=== PATIENT | female | born 1950 | race Caucasian/White ===

== ENCOUNTER 2017-12-25 11:58 | Emergency (ER) | payer MEDICARE, BC ==
[2017-12-25] MEDS ORDERED: Alum Hydrox/Mag Hydrox/Simeth 30 ML, Lidocaine 2% 15 ML PO ONE ×2 (12:45)
[2017-12-25] MEDS ORDERED: Famotidine 20 MG Tab PO ONE (12:45)
--- NOTE | 2017-12-25 12:54 | EDM.PDOC ---
ED HPI GENERAL MEDICAL PROBLEM - General Chief Complaint: Abdominal Pain Stated Complaint: UPPER ABD PAIN/DISCOMFORT Time Seen by Provider: 12/25/17 12:30 Source of Information: Reports: Patient History Limitations: Reports: No Limitations - History of Present Illness INITIAL COMMENTS - FREE TEXT/NARRATIVE: Patient is a 67-year-old female presents ED complaining of upper abdomen/throat burning sensation. States this has been an on going issue for months. She was evaluated 3 weeks ago with EGD obtained showing inflammation to her stomach. There was no ulcer present. They did biopsies with nothing concerning noted. She continued on Protonix 40 mg every day. States the discomfort worsens with eating and drinking. Symptoms substantially worsens at night with laying down. She's been trying to alter her diet with no significant decrease in symptoms. She has taken antacids which do help but only get worse 15 minutes later. This morning symptoms got so bad that she did vomit. Pain currently is rated 3 out of 10. This morning she was mildly diaphoretic with no documented fever, dizziness, or syncope. There's been no blood within her stool. Nor does she does complain of any dark tarry stools. She was evaluated by her PCP this past with stress test scheduled for tomorrow. She did have EKG obtained at that time which was normal. She was placed on Carafate 4 times a day to which the patient's been taking with little relief. Again symptoms worsen with lying down. There is no relation to increase in symptoms with food she eats. She has some mild shortness of breath described as faint with onset of symptoms. Symptoms subside on its own. There is no first degree relatives with heart disease. She denies any history of heart disease although she does have a history of hypercholesterolemia currently on Crestor and hypertension currently on metoprolol and HCTZ. She does have a history of anxiety and is on Ativan. . throat Pain Score (Numeric/FACES): 1 - Related Data Allergies Allergy/AdvReac Type Severity Reaction Status Date / Time No Known Allergies Allergy Verified 12/25/17 12:19 Home Meds: Home Meds Calcium Polycarbophil [Fibercon] 2 tab PO BID 12/25/17 [History] Fluocinonide 0.5 percent TP ASDIRECTED PRN 12/25/17 [History] LORazepam [Ativan] 0.5 mg PO BID PRN 12/25/17 [History] Lactobacillus Acidophilus [Probiotic] 1 each PO DAILY 12/25/17 [History] Levothyroxine [Synthroid] 50 mcg PO ACBREAKFAST 12/25/17 [History] Metoprolol Succinate/HCTZ [Dutoprol 50-12.5 mg Tablet] 0.5 tab PO DAILY [History] Multivitamin with Minerals [Multiple Vitamin] 1 tab PO DAILY 12/25/17 [History] Pantoprazole Sodium [Protonix] 40 mg PO DAILY 12/25/17 [History] Rosuvastatin [Crestor] 20 mg PO DAILY 12/25/17 [History] Sucralfate [Carafate] 1 gm PO QID 12/25/17 [History] Past Medical History HEENT History: Reports: Impaired Vision Gastrointestinal History: Reports: Gastritis, GERD, Other (See Below) Other Gastrointestinal History: esophagitis Psychiatric History: Reports: Anxiety Endocrine/Metabolic History: Reports: Hypothyroidism Other Dermatologic History: rashes Social & Family History - Family History Family Medical History: Noncontributory - Tobacco Use Smoking Status *Q: Never Smoker - Caffeine Use Caffeine Use: Reports: None - Recreational Drug Use Recreational Drug Use: No ED ROS GENERAL - Review of Systems Review Of Systems: ROS reveals no pertinent complaints other than HPI. ED EXAM, GI/ABD - Physical Exam Exam: See Below Exam Limited By: No Limitations General Appearance: Alert, WD/WN, No Apparent Distress Ears: Hearing Grossly Normal Nose: Normal Inspection Throat/Mouth: Normal Voice, No Airway Compromise Neck: Normal Inspection, Supple Respiratory/Chest: No Respiratory Distress, Lungs Clear, Normal Breath Sounds, No Accessory Muscle Use, Chest Non-Tender Cardiovascular: Normal Peripheral Pulses, Regular Rate, Rhythm, No Murmur GI/Abdominal Exam: Normal Bowel Sounds, Soft, Non-Tender, No Organomegaly, No Distention Back Exam: Normal Inspection Extremities: Normal Inspection, Normal Range of Motion, Non-Tender, No Pedal Edema, Normal Capillary Refill Neurological: Alert, Oriented, CN II-XII Intact, Normal Cognition Psychiatric: Normal Affect, Normal Mood Skin Exam: Warm, Dry, Intact, Normal Color, No Rash Course - Vital Signs Last Recorded V/S: Last Vital Signs Temp 97.5 F 12/25/17 12:10 Pulse 70 12/25/17 12:10 Resp 18 12/25/17 12:10 BP 139/81 12/25/17 12:10 Pulse Ox 96 12/25/17 12:10 - Orders/Labs/Meds Orders: Active Orders 24 hr Category Date Time Status EKG 12 Lead [EKG Documentation Completion] [RC] STAT Care 12/25/17 12:44 Active Peripheral IV Care [RC] . DIRECTED Care 12/25/17 12:46 Active Chest 1V Frontal [CR] Stat Exams 12/25/17 12:44 Taken Labs: Laboratory Tests 12/25/17 12/25/17 12/25/17 Range/Units 12:43 12:43 12:45 WBC 5.89 (3.98-10.04) K/mm3 RBC 4.64 (3.98-5.22) M/mm3 Hgb 13.8 (11.2-15.7) gm/L Hct 40.7 (34.1-44.9) % MCV 87.7 (79.4-94.8) fl MCH 29.7 (25.6-32.2) pg MCHC 33.9 (32.2-35.5) g/dl RDW Std Deviation 39.7 (36.4-46.3) fL Plt Count 184 (182-369) K/mm3 MPV 10.3 (9.4-12.3) fl Neutrophils % (Manual) 63 H (40-60) % Band Neutrophils % 1 (0-10) % Lymphocytes % (Manual) 30 (20-40) % Atypical Lymphs % 0 % Monocytes % (Manual) 6 (2-10) % Eosinophils % (Manual) 0 L (0.7-5.8) % Basophils % (Manual) 0 L (0.1-1.2) Platelet Estimate Adequate RBC Morph Comment Normal Sodium 142 (136-145) mEq/L Potassium 3.4 L (3.5-5.1) mEq/L Chloride 103 (98-107) mEq/L Carbon Dioxide 29 (21-32) mEq/L Anion Gap 13.4 (5-15) BUN 12 (7-18) mg/dL Creatinine 0.8 (0.55-1.02) mg/dL Est Cr Clr Drug Dosing 61.40 mL/min Estimated GFR (MDRD) > 60 (>60) mL/min BUN/Creatinine Ratio 15.0 (14-18) Glucose 92 (80-115) mg/dL Calcium 9.4 (8.5-10.1) mg/dL Total Bilirubin 1.8 H (0.2-1.0) mg/dL AST 21 (15-37) U/L ALT 23 (14-59) U/L Alkaline Phosphatase 69 (46-116) U/L CK-MB (CK-2) 1.4 (0-3.6) ng/ml Troponin I < 0.017 (0.00-0.056) ng/mL C-Reactive Protein 0.3 (<1.0) mg/dL Total Protein 7.5 (6.4-8.2) g/dl Albumin 3.9 (3.4-5.0) g/dl Globulin 3.6 gm/dL Albumin/Globulin Ratio 1.1 (1-2) TSH 3rd Generation 2.585 (0.358-3.74) uIU/mL Meds: Medications Discontinued Medications Generic Name Dose Route Start Last Admin Trade Name Freq PRN Reason Stop Dose Admin Al Hydroxide/Mg Hydroxide 30 0 ml 12/25/17 12:45 12/25/17 13:02 ml/ Lidocaine HCl 15 ml PO 12/25/17 12:46 45 ml ONETIME ONE Administration Famotidine 40 mg 12/25/17 12:45 12/25/17 13:00 Pepcid PO 12/25/17 12:46 40 mg ONETIME ONE Administration - Re-Assessments/Exams Free Text/Narrative Re-Assessment/Exam: Peripheral IV established. Initial labs and studies will include: CBC, chem 14, CRP, troponin, UA, and CK-MB. I also ordered EKG and chest x-ray one view. Ordered Pepcid 40 mg by mouth and GI cocktail by mouth. EKG sinus bradycardia with no acute ST changes noted. Per nursing staff after administration of the GI cocktail almost all of the patient's symptoms are gone. This is suggesting the diagnosis of esophagitis and /or gastritis was correct. Still waiting for results of labs prior to discharge. Chest x ray: revealed no acute processes noted. Final interpretations pending. Labs reviewed: CBC essentially normal. Potassium mildly low at 3.4. Troponin, CK -MB, and TSH were all normal. Discuss results of the labs, chest x-ray, and EKG with the patient. She is ready to be discharged home. She is scheduled for a stress test tomorrow.The patient remained hemodynamically stable while under my care in the E.D. I discussed the concerning symptoms for which to returnto the E.D. with the patient/family. The patient/family verbalized understanding. All questions were answered. Departure - Departure Time of Disposition: 14:05 Disposition: Home, Self-Care 01 Condition: Good Clinical Impression: Esophagitis Gastritis Qualifiers: Gastritis type: unspecified gastritis Chronicity: chronic Gastritis bleeding: without bleeding Qualified Code(s): K29.50 - Unspecified chronic gastritis without bleeding - Discharge Information Instructions: Esophagitis, Gastritis, Adult Referrals: Lisbeth Juan MD [Primary Care Provider] - Forms: ED Department Discharge Additional Instructions: Suspect your systems are related to esophagitis and gastritis. Take all your home medications as prescribed. Will have you take zantac 150 mg PO every evening prior to going to bed. Do not eat or drink within 4 hours of going to bed. Sleeping upright position to reduce any acid reflux symptoms. Refrain from caffeine, carbonated beverages, chocolates, spicy foods, or any other foods that cause aggravation. Keep appointment scheduled tomorrow for stress test. Follow-up with her PCP within the next 3-5 days for reevaluation if symptoms persist. Follow-up with PCP to ensure biopsies obtained did not indicate H. Pylori was present thus requiring further treatment. Continue taking all home medications as prescribed. May utilize maalox throughout the course of the day as needed. Return to the E.D. if you develop any new or worsening symptoms. - My Orders Last 24 Hours: My Active Orders 12/25/17 12:44 EKG 12 Lead [EKG Documentation Completion] [RC] STAT Chest 1V Frontal [CR] Stat 12/25/17 12:46 Peripheral IV Care [RC] . DIRECTED - Assessment/Plan Last 24 Hours: My Active Orders 12/25/17 12:44 EKG 12 Lead [EKG Documentation Completion] [RC] STAT Chest 1V Frontal [CR] Stat 12/25/17 12:46 Peripheral IV Care [RC] . DIRECTED
--- NOTE | 2017-12-27 09:37 | CR ---
Chest: Portable view of the chest was obtained. Comparison: No prior chest x-ray. Heart size is normal. Tortuous thoracic aorta is seen. Lungs are clear without acute parenchymal change. Minimal scoliosis is noted. Impression: 1. Incidental findings. Nothing acute is identified on portable chest x-ray. Diagnostic code #1
== END 2017-12-25 14:30 | disposition home or self-care (01) ==
LOC: JD.ED 11:58
DX: K20.9 Esophagitis, unspecified (principal); K29.50 Unspecified chronic gastritis without bleeding; E03.9 Hypothyroidism, unspecified; I10 Essential (primary) hypertension; F41.9 Anxiety disorder, unspecified; Z79.899 Other long term (current) drug therapy
CPT/HCPCS: 36415; 71045; 80053; 82553; 84443; 84484; 85007; 85027; 86140; 93005; 99284; A9270

== ENCOUNTER 2018-08-28 04:52 | Inpatient (IN) | payer MEDICARE, BC ==
--- NOTE | 2018-08-28 05:10 | EDM.PDOC ---
<Galen Allen - Last Filed: 08/28/18 10:04> ED HPI GENERAL MEDICAL PROBLEM - General Chief Complaint: Abdominal Pain Stated Complaint: abdominal pain Time Seen by Provider: 08/28/18 05:02 - Related Data Allergies Allergy/AdvReac Type Severity Reaction Status Date / Time No Known Allergies Allergy Verified 08/28/18 05:04 Home Meds: Home Meds Calcium Polycarbophil [Fibercon] 2 tab PO BID 12/25/17 [History] LORazepam [Ativan] 0.5 mg PO BID PRN 12/25/17 [History] Levothyroxine [Synthroid] 50 mcg PO ACBREAKFAST 12/25/17 [History] Multivitamin with Minerals [Multiple Vitamin] 1 tab PO DAILY PRN 12/25/17 [ History] Pantoprazole Sodium [Protonix] 40 mg PO BID 12/25/17 [History] Rosuvastatin [Crestor] 20 mg PO BEDTIME 12/25/17 [History] Sucralfate [Carafate] 1 gm PO DAILY 12/25/17 [History] Fluocinonide [Lidex 0.05% Crm] 15 gm TOP DAILY PRN 08/28/18 [History] L.acidoph,Paracasei, B.lactis [Probiotic] 1 each PO DAILY 08/28/18 [History] Metoprolol Succinate [Toprol XL 50mg] 50 mg PO DAILY 08/28/18 [History] Omeprazole 20 mg PO BIDAC 08/28/18 [History] hydroCHLOROthiazide [Hydrochlorothiazide] 12.5 mg PO DAILY 08/28/18 [History] Course - Vital Signs Last Recorded V/S: Last Vital Signs Temp 37.2 C 08/28/18 23:33 Pulse 76 08/28/18 23:33 Resp 18 08/28/18 23:33 BP 125/97 H 08/28/18 23:33 Pulse Ox 94 L 08/28/18 23:33 - Orders/Labs/Meds Orders: Active Orders 24 hr Category Date Time Status CULTURE STOOL + SHIGATOX [RM] Stat Lab 08/28/18 07:30 Ordered OVA & PARASITES BY IMMUNOASSAY [MREF] Stat Lab 08/28/18 07:30 Received Isolation [COMM] Stat Oth 08/28/18 07:30 Ordered Medication Orders Acetaminophen (Tylenol) 650 mg PO Q4H PRN PRN Reason: Pain (Mild 1-3)/fever Last Admin: 08/28/18 17:09 Dose: 650 mg Acetaminophen/Butalbital/Caffeine (Fioricet 325-50-40 Mg) 1 tab PO Q6H PRN PRN Reason: Headache Hydrocodone Bitart/Acetaminophen ([place] 325-5 Mg) 1 tab PO Q4H PRN PRN Reason: Pain (moderate 4-6) Albuterol/Ipratropium (Duoneb 3.0-0.5 Mg/3 Ml) 3 ml NEB Q4H PRN PRN Reason: Shortness Of Breath/wheezing Calcium Polycarbophil (Fibercon) 1,250 mg PO BID PATY Famotidine (Pepcid) 20 mg PO BID PATY Last Admin: 08/28/18 21:03 Dose: 20 mg Hydralazine HCl (Apresoline) 20 mg IVPUSH Q4H PRN PRN Reason: Hypertension Hydrochlorothiazide (Hydrochlorothiazide) 12.5 mg PO DAILY [facility] Hydromorphone HCl (Dilaudid) 0.5 mg IVPUSH Q2H PRN PRN Reason: Pain (severe 7-10) Sodium Chloride (Normal Saline) 1,000 mls @ 100 mls/hr IV ASDIRECTED [facility] Last Admin: 08/28/18 17:15 Dose: 100 mls/hr Promethazine HCl 25 mg/ Sodium (Chloride) 51 mls @ 100 mls/hr IV Q6H PRN PRN Reason: Nausea/Vomiting Last Admin: 08/28/18 22:51 Dose: 100 mls/hr Levothyroxine Sodium (Synthroid) 50 mcg PO ACBREAKFAST [facility] Lorazepam (Ativan) 0.5 mg PO BID PRN PRN Reason: Anxiety Magnesium Sulfate (Pharmacy To Dose - Magnesium Replacement) 0 dose .XX ASDIRECTED PRN PRN Reason: RX TO WATCH MAG Metoprolol Succinate (Toprol Xl) 50 mg PO DAILY [facility] Metoprolol Tartrate (Lopressor) 5 mg IVPUSH Q4H PRN PRN Reason: Tachycardia Multivitamins (Thera) 1 each PO DAILY PRN PRN Reason: VITAMIN Ondansetron HCl (Zofran) 4 mg IV Q6H PRN PRN Reason: Nausea/Vomiting Last Admin: 08/28/18 19:28 Dose: 4 mg Potassium Chloride (Pharmacy To Dose - Potassium Replacement) 0 dose .XX ASDIRECTED PRN PRN Reason: RX TO WATCH K Rosuvastatin Calcium (Crestor) 20 mg PO BEDTIME PATY Saccharomyces Boulardii (Florastor) 250 mg PO TID [facility] Last Admin: 08/28/18 21:03 Dose: 250 mg Admin: 08/28/18 14:58 Dose: 250 mg Scopolamine (Transderm-Scop) 1.5 mg TRDERM Q72H PRN PRN Reason: Nausea/Vomiting Last Admin: 08/28/18 14:57 Dose: 1.5 mg Sucralfate (Carafate) 1 gm PO DAILY [facility] Temazepam (Restoril) 7.5 mg PO BEDTIME PRN PRN Reason: Sleep Vancomycin HCl (Vancomycin 50 Mg/Ml Soln) 250 mg PO QID [facility] Last Admin: 08/28/18 21:04 Dose: 250 mg Admin: 08/28/18 17:08 Dose: 250 mg Admin: 08/28/18 14:54 Dose: 250 mg Labs: Laboratory Tests 08/28/18 08/28/18 08/28/18 Range/Units 05:04 05:04 05:40 WBC 10.30 H (3.98-10.04) K/mm3 RBC 4.62 (3.98-5.22) M/mm3 Hgb 13.8 (11.2-15.7) gm/L Hct 40.3 (34.1-44.9) % MCV 87.2 (79.4-94.8) fl MCH 29.9 (25.6-32.2) pg MCHC 34.2 (32.2-35.5) g/dl RDW Std Deviation 41.9 (36.4-46.3) fL Plt Count 225 (182-369) K/mm3 MPV 11.1 (9.4-12.3) fl Neutrophils % (Manual) 94 H (40-60) % Band Neutrophils % 0 (0-10) % Lymphocytes % (Manual) 4 L (20-40) % Atypical Lymphs % 0 % Monocytes % (Manual) 2 (2-10) % Eosinophils % (Manual) 0 L (0.7-5.8) % Basophils % (Manual) 0 L (0.1-1.2) Platelet Estimate Adequate RBC Morph Comment Normal Sodium 140 (136-145) mEq/L Potassium 3.3 L (3.5-5.1) mEq/L Chloride 103 (98-107) mEq/L Carbon Dioxide 25 (21-32) mEq/L Anion Gap 15.3 H (5-15) BUN 12 (7-18) mg/dL Creatinine 0.7 (0.55-1.02) mg/dL Est Cr Clr Drug Dosing 69.21 mL/min Estimated GFR (MDRD) > 60 (>60) mL/min BUN/Creatinine Ratio 17.1 (14-18) Glucose 113 (80-115) mg/dL Calcium 9.3 (8.5-10.1) mg/dL Total Bilirubin 2.0 H (0.2-1.0) mg/dL AST 22 (15-37) U/L ALT 33 (14-59) U/L Alkaline Phosphatase 65 (46-116) U/L Total Protein 7.4 (6.4-8.2) g/dl Albumin 3.7 (3.4-5.0) g/dl Globulin 3.7 gm/dL Albumin/Globulin Ratio 1.0 (1-2) Lipase 107 (73-393) U/L Urine Color Dark yellow (Yellow) Urine Appearance Clear (Clear) Urine pH 6.0 (5.0-8.0) Ur Specific [place] 1.020 (1.005-1.030) Urine Protein Trace H (Negative) Urine Glucose (UA) Negative (Negative) Urine Ketones Negative (Negative) Urine Occult Blood Negative (Negative) Urine Nitrite Negative (Negative) Urine Bilirubin 1+ H (Negative) Urine Urobilinogen 0.2 (0.2-1.0) Ur Leukocyte Esterase Negative (Negative) Urine RBC Not seen (0-5) /hpf Urine WBC 0-5 (0-5) /hpf Ur Epithelial Cells 0-5 (0-5) /hpf Amorphous Sediment Moderate H (NOT SEEN) /hpf Urine Bacteria Moderate H (FEW) /hpf Urine Mucus Many H (FEW) /hpf C.difficile [id number] C. difficile Tox (PCR) 08/28/18 Range/Units 07:30 WBC (3.98-10.04) K/mm3 RBC (3.98-5.22) M/mm3 Hgb (11.2-15.7) gm/L Hct (34.1-44.9) % MCV (79.4-94.8) fl MCH (25.6-32.2) pg MCHC (32.2-35.5) g/dl RDW Std Deviation (36.4-46.3) fL Plt Count (182-369) K/mm3 MPV (9.4-12.3) fl Neutrophils % (Manual) (40-60) % Band Neutrophils % (0-10) % Lymphocytes % (Manual) (20-40) % Atypical Lymphs % % Monocytes % (Manual) (2-10) % Eosinophils % (Manual) (0.7-5.8) % Basophils % (Manual) (0.1-1.2) Platelet Estimate RBC Morph Comment Sodium (136-145) mEq/L Potassium (3.5-5.1) mEq/L Chloride (98-107) mEq/L Carbon Dioxide (21-32) mEq/L Anion Gap (5-15) BUN (7-18) mg/dL Creatinine (0.55-1.02) mg/dL Est Cr Clr Drug Dosing mL/min Estimated GFR (MDRD) (>60) mL/min BUN/Creatinine Ratio (14-18) Glucose (80-115) mg/dL Calcium (8.5-10.1) mg/dL Total Bilirubin (0.2-1.0) mg/dL AST (15-37) U/L ALT (14-59) U/L Alkaline Phosphatase (46-116) U/L Total Protein (6.4-8.2) g/dl Albumin (3.4-5.0) g/dl Globulin gm/dL Albumin/Globulin Ratio (1-2) Lipase (73-393) U/L Urine Color (Yellow) Urine Appearance (Clear) Urine pH (5.0-8.0) Ur Specific [place] (1.005-1.030) Urine Protein (Negative) Urine Glucose (UA) (Negative) Urine Ketones (Negative) Urine Occult Blood (Negative) Urine Nitrite (Negative) Urine Bilirubin (Negative) Urine Urobilinogen (0.2-1.0) Ur Leukocyte Esterase (Negative) Urine RBC (0-5) /hpf Urine WBC (0-5) /hpf Ur Epithelial Cells (0-5) /hpf Amorphous Sediment (NOT SEEN) /hpf Urine Bacteria (FEW) /hpf Urine Mucus (FEW) /hpf C.difficile [id number] Presumptive negative C. difficile Tox (PCR) Positive H Meds: Medications Generic Name Dose Route Start Last Admin Trade Name Freq PRN Reason Stop Dose Admin Acetaminophen 650 mg 08/28/18 13:49 08/28/18 17:09 Tylenol PO 650 mg Q4H PRN Administration Pain (Mild 1-3)/fever Acetaminophen/Butalbital/Caffeine 1 tab 08/28/18 18:22 Fioricet 325-50-40 Mg PO Q6H PRN Headache Hydrocodone Bitart/Acetaminophen 1 tab 08/28/18 13:49 [place] 325-5 Mg PO Q4H PRN Pain (moderate 4-6) Albuterol/Ipratropium 3 ml 08/28/18 13:49 Duoneb 3.0-0.5 Mg/3 Ml NEB Q4H PRN Shortness Of Breath/wheezing Calcium Polycarbophil 1,250 mg 08/29/18 09:00 Fibercon PO BID PATY Famotidine 20 mg 08/28/18 21:00 08/28/18 21:03 Pepcid PO 20 mg BID PATY Administration Hydralazine HCl 20 mg 08/28/18 13:48 Apresoline IVPUSH Q4H PRN Hypertension Hydrochlorothiazide 12.5 mg 08/29/18 09:00 Hydrochlorothiazide PO DAILY [facility] Hydromorphone HCl 0.5 mg 08/28/18 13:49 Dilaudid IVPUSH Q2H PRN Pain (severe 7-10) Sodium Chloride 1,000 mls @ 100 mls/hr 08/28/18 16:45 08/28/18 17:15 Normal Saline IV 100 mls/hr ASDIRECTED PATY Administration Promethazine HCl 25 mg/ Sodium 51 mls @ 100 mls/hr 08/28/18 21:21 08/28/18 22 :51 Chloride IV 100 mls/hr Q6H PRN Administration Nausea/Vomiting Levothyroxine Sodium 50 mcg 08/29/18 06:00 Synthroid PO ACBREAKFAST PATY Lorazepam 0.5 mg 08/28/18 21:05 Ativan PO BID PRN Anxiety Magnesium Sulfate 0 dose 08/28/18 14:00 Pharmacy To Dose - Magnesium Replacement .XX ASDIRECTED PRN RX TO WATCH MAG Metoprolol Succinate 50 mg 08/29/18 09:00 Toprol Xl PO DAILY PAT[facility] Metoprolol Tartrate 5 mg 08/28/18 13:48 Lopressor IVPUSH Q4H PRN Tachycardia Multivitamins 1 each 08/28/18 21:30 Thera PO DAILY PRN VITAMIN Ondansetron HCl 4 mg 08/28/18 13:49 08/28/18 19:28 Zofran IV 4 mg Q6H PRN Administration Nausea/Vomiting Potassium Chloride 0 dose 08/28/18 14:00 Pharmacy To Dose - Potassium Replacement .XX ASDIRECTED PRN RX TO WATCH K Rosuvastatin Calcium 20 mg 08/29/18 21:00 Crestor PO BEDTIME PATY Saccharomyces Boulardii 250 mg 08/28/18 15:00 08/28/18 21:03 Florastor PO 250 mg TID PATY Administration Scopolamine 1.5 mg 08/28/18 13:02 08/28/18 14:57 Transderm-Scop TRDERM 1.5 mg Q72H PRN Administration Nausea/Vomiting Sucralfate 1 gm 08/29/18 09:00 Carafate PO DAILY [facility] Temazepam 7.5 mg 08/28/18 13:49 Restoril PO BEDTIME PRN Sleep Vancomycin HCl 250 mg 08/28/18 14:00 08/28/18 21:04 Vancomycin 50 Mg/Ml Soln PO 250 mg QID PATY Administration Discontinued Medications Generic Name Dose Route Start Last Admin Trade Name Freq PRN Reason Stop Dose Admin Diatrizoate Meglum/Diatrizoate Sod 90 ml 08/28/18 06:40 08/28/18 07:16 Gastrografin 37% PO 08/28/18 06:41 90 ml ONETIME ONE Administration Hydromorphone HCl 0.5 mg 08/28/18 05:32 08/28/18 05:45 Dilaudid IVPUSH 08/28/18 05:33 0.5 mg ONETIME STA Administration Hydromorphone HCl 0.5 mg 08/28/18 08:51 08/28/18 09:00 Dilaudid IVPUSH 08/28/18 08:52 0.5 mg ONETIME ONE Administration Hydromorphone HCl 0.5 mg 08/28/18 13:00 08/28/18 13:07 Dilaudid IVPUSH 08/28/18 13:01 0.5 mg ONETIME ONE Administration Sodium Chloride 1,000 mls @ 100 mls/hr 08/28/18 05:45 08/28/18 05:43 Normal Saline IV 100 mls/hr ASDIRECTED PATY Administration Sodium Chloride 1,000 mls @ 150 mls/hr 08/28/18 10:00 08/28/18 09:55 Normal Saline IV 150 mls/hr ASDIRECTED PATY Administration Iopamidol 100 ml 08/28/18 06:40 08/28/18 07:16 Isovue-370 (76%) IV 08/28/18 06:41 100 ml ONETIME ONE Administration Metoclopramide HCl 5 mg 08/28/18 21:17 Reglan IVPUSH Q6H PRN Nausea Non-Formulary Medication 15 gm 08/28/18 17:18 Fluocinonide TOP DAILY PRN Rash Ondansetron HCl 4 mg 08/28/18 05:32 08/28/18 05:44 Zofran IVPUSH 08/28/18 05:33 4 mg ONETIME ONE Administration Ondansetron HCl 4 mg 08/28/18 08:52 08/28/18 09:00 Zofran IVPUSH 08/28/18 08:53 4 mg ONETIME ONE Administration Ondansetron HCl 4 mg 08/28/18 13:01 08/28/18 13:07 Zofran IVPUSH 4 mg Q6H PRN Administration Nausea/Vomiting Potassium Chloride 40 meq 08/28/18 14:30 08/28/18 18:58 Klor-Con M20 PO 08/28/18 18:31 40 meq Q4H PATY Administration Saccharomyces Boulardii 250 mg 08/29/18 09:00 Florastor PO DAILY [facility] Vancomycin HCl 125 mg 08/28/18 09:51 08/28/18 09:59 Vancomycin 50 Mg/Ml Soln PO 08/28/18 09:52 125 mg ONETIME ONE Administration - Re-Assessments/Exams Free Text/Narrative Re-Assessment/Exam: 08/28/18 10:[address] Ordonez. Her CT shows mild areas of wall edema throughout the colon suggesting mild diffuse and nonspecific colitis. She was able to give us a stool sample and there was some WBCs and her C-dif was positive. I ordered more IV fluids and vancomycin 125mg by mouth. I do not feel she is going to do well at home. I called Dr Mosher and he agreed to the admission. Departure - Departure Time of Disposition: 10:10 Disposition: Admitted As Inpatient 66 Condition: Fair Clinical Impression: Clostridium difficile colitis Abdominal pain Qualifiers: Abdominal location: generalized Qualified Code(s): R10.84 - Generalized abdominal pain Diarrhea Qualifiers: Diarrhea type: infectious Qualified Code(s): A09 - Infectious gastroenteritis and colitis, unspecified - Discharge Information <MeryDevon Britni - Last Filed: 08/29/18 01:59> ED HPI GENERAL MEDICAL PROBLEM - General Source of Information: Reports: Patient, Family (), RN Notes Reviewed History Limitations: Reports: No Limitations - History of Present Illness INITIAL COMMENTS - FREE TEXT/NARRATIVE: The patient states that she has been experiencing lower abdominal cramps, worse on the left than the right, watery diarrhea, and nausea without emesis for the past 2 days. She states that she had a temperature 101 last night, but was afebrile today. No urinary symptoms. She states that she took 2 Advil tablets. The patient states that she had similar symptoms while in [place] earlier this month. She was seen at the [facility] in [place] on 08/09/2017 with a complaint of nausea with vomiting, watery diarrhea, abdominal cramps, chest pain, and fatigue. Workup included a CBC, CMP, lipase level, 2 troponins, a TSH level, a urinalysis, and ECG, and a CT scan of her abdomen and pelvis. Her blood work, urinalysis, and ECG were largely unremarkable, however, her CT scan found mild proctitis. She was prescribed a 10-day course of ciprofloxacin and Flagyl, which she completed. She states that her symptoms largely resolved, although the antibiotics caused her to have nausea, therefore she did not eat much, and therefore she has not had much in the way of bowel movements. The patient denies having chronic diarrhea. She does have a history of a large hiatal hernia with GERD and gastritis. She states that she takes Prilosec daily , as prescribed. The patient's PCP is Dr. Lisbeth Juan. Abdominal Pain Score (Numeric/FACES): 8 Past Medical History HEENT History: Reports: Impaired Vision Cardiovascular History: Reports: High Cholesterol, Hypertension Gastrointestinal History: Reports: Colon Polyp, Diverticulosis (diverticulitis) , Gastritis, GERD, Hiatal Hernia (large) Psychiatric History: Reports: Anxiety Endocrine/Metabolic History: Reports: Hypothyroidism - Past Surgical History HEENT Surgical History: Reports: Oral Surgery (wisdom teeth extraction) GI Surgical History: Reports: Cholecystectomy (around 1999), Colonoscopy (x 1), EGD (x 1) Female Surgical History: Reports: D&C (x 2), Hysterectomy (complete), Salpingo-Oophorectomy, Tubal Ligation Social & Family History - Family History Family Medical History: Noncontributory - Tobacco Use Smoking Status *Q: Never Smoker - Caffeine Use Caffeine Use: Reports: None - Alcohol Use Alcohol Use History: Yes Alcohol Use Frequency: Socially - Recreational Drug Use Recreational Drug Use: No - Living Situation & Occupation Living situation: Reports: , with Spouse Occupation: Retired ED ROS GENERAL - Review of Systems Review Of Systems: ROS reveals no pertinent complaints other than HPI. ED EXAM, GI/ABD - Physical Exam Exam: See Below Exam Limited By: No Limitations General Appearance: Alert, WD/WN, No Apparent Distress Eyes: Bilateral: Normal Appearance, EOMI Ears: Normal External Exam, Hearing Grossly Normal Nose: Normal Inspection Throat/Mouth: Normal Inspection, Normal Lips, Normal Voice, No Airway Compromise Head: Atraumatic, Normocephalic Neck: Normal Inspection, Full Range of Motion Respiratory/Chest: No Respiratory Distress, Lungs Clear, Normal Breath Sounds, No Accessory Muscle Use Cardiovascular: Normal Peripheral Pulses, Regular Rate, Rhythm, No Edema, No Gallop, No JVD, No Murmur, No Rub GI/Abdominal Exam: Normal Bowel Sounds, Soft, No Organomegaly, No Distention, No Abnormal Bruit, No Mass, Tender (Generalized, but greater in the lower abdomen than the upper. Not especially more tender in the left lower quadrant of the right lower quadrant.) (Female) Exam: Deferred Rectal (Female) Exam: Deferred Back Exam: Normal Inspection, Full Range of Motion. No: CVA Tenderness (L), CVA Tenderness (R) Extremities: Normal Inspection, Normal Range of Motion, No Pedal Edema, Normal Capillary Refill Neurological: Alert, Oriented, Normal Cognition, No Motor/Sensory Deficits Psychiatric: Normal Affect Skin Exam: Warm, Dry, Intact, Normal Color, No Rash Course - Orders/Labs/Meds Orders: Active Orders 24 hr Category Date Time Status CULTURE STOOL + SHIGATOX [RM] Stat Lab 08/28/18 07:30 Ordered OVA & PARASITES BY IMMUNOASSAY [MREF] Stat Lab 08/28/18 07:30 Received Isolation [COMM] Stat Oth 08/28/18 07:30 Ordered Medication Orders Acetaminophen (Tylenol) 650 mg PO Q4H PRN PRN Reason: Pain (Mild 1-3)/fever Last Admin: 08/28/18 17:09 Dose: 650 mg Acetaminophen/Butalbital/Caffeine (Fioricet 325-50-40 Mg) 1 tab PO Q6H PRN PRN Reason: Headache Hydrocodone Bitart/Acetaminophen ([place] 325-5 Mg) 1 tab PO Q4H PRN PRN Reason: Pain (moderate 4-6) Albuterol/Ipratropium (Duoneb 3.0-0.5 Mg/3 Ml) 3 ml NEB Q4H PRN PRN Reason: Shortness Of Breath/wheezing Calcium Polycarbophil (Fibercon) 1,250 mg PO BID [facility] Famotidine (Pepcid) 20 mg PO BID [facility] Last Admin: 08/28/18 21:03 Dose: 20 mg Hydralazine HCl (Apresoline) 20 mg IVPUSH Q4H PRN PRN Reason: Hypertension Hydrochlorothiazide (Hydrochlorothiazide) 12.5 mg PO DAILY [facility] Hydromorphone HCl (Dilaudid) 0.5 mg IVPUSH Q2H PRN PRN Reason: Pain (severe 7-10) Sodium Chloride (Normal Saline) 1,000 mls @ 100 mls/hr IV ASDIRECTED [facility] Last Admin: 08/28/18 17:15 Dose: 100 mls/hr Promethazine HCl 25 mg/ Sodium (Chloride) 51 mls @ 100 mls/hr IV Q6H PRN PRN Reason: Nausea/Vomiting Last Admin: 08/28/18 22:51 Dose: 100 mls/hr Levothyroxine Sodium (Synthroid) 50 mcg PO ACBREAKFAST [facility] Lorazepam (Ativan) 0.5 mg PO BID PRN PRN Reason: Anxiety Magnesium Sulfate (Pharmacy To Dose - Magnesium Replacement) 0 dose .XX ASDIRECTED PRN PRN Reason: RX TO WATCH MAG Metoprolol Succinate (Toprol Xl) 50 mg PO DAILY [facility] Metoprolol Tartrate (Lopressor) 5 mg IVPUSH Q4H PRN PRN Reason: Tachycardia Multivitamins (Thera) 1 each PO DAILY PRN PRN Reason: VITAMIN Ondansetron HCl (Zofran) 4 mg IV Q6H PRN PRN Reason: Nausea/Vomiting Last Admin: 08/28/18 19:28 Dose: 4 mg Potassium Chloride (Pharmacy To Dose - Potassium Replacement) 0 dose .XX ASDIRECTED PRN PRN Reason: RX TO WATCH K Rosuvastatin Calcium (Crestor) 20 mg PO BEDTIME PATY Saccharomyces Boulardii (Florastor) 250 mg PO TID PATY Last Admin: 08/28/18 21:03 Dose: 250 mg Admin: 08/28/18 14:58 Dose: 250 mg Scopolamine (Transderm-Scop) 1.5 mg TRDERM Q72H PRN PRN Reason: Nausea/Vomiting Last Admin: 08/28/18 14:57 Dose: 1.5 mg Sucralfate (Carafate) 1 gm PO DAILY [facility] Temazepam (Restoril) 7.5 mg PO BEDTIME PRN PRN Reason: Sleep Vancomycin HCl (Vancomycin 50 Mg/Ml Soln) 250 mg PO QID [facility] Last Admin: 08/28/18 21:04 Dose: 250 mg Admin: 08/28/18 17:08 Dose: 250 mg Admin: 08/28/18 14:54 Dose: 250 mg Labs: Laboratory Tests 08/28/18 08/28/18 08/28/18 Range/Units 05:04 05:04 05:40 WBC 10.30 H (3.98-10.04) K/mm3 RBC 4.62 (3.98-5.22) M/mm3 Hgb 13.8 (11.2-15.7) gm/L Hct 40.3 (34.1-44.9) % MCV 87.2 (79.4-94.8) fl MCH 29.9 (25.6-32.2) pg MCHC 34.2 (32.2-35.5) g/dl RDW Std Deviation 41.9 (36.4-46.3) fL Plt Count 225 (182-369) K/mm3 MPV 11.1 (9.4-12.3) fl Neutrophils % (Manual) 94 H (40-60) % Band Neutrophils % 0 (0-10) % Lymphocytes % (Manual) 4 L (20-40) % Atypical Lymphs % 0 % Monocytes % (Manual) 2 (2-10) % Eosinophils % (Manual) 0 L (0.7-5.8) % Basophils % (Manual) 0 L (0.1-1.2) Platelet Estimate Adequate RBC Morph Comment Normal Sodium 140 (136-145) mEq/L Potassium 3.3 L (3.5-5.1) mEq/L Chloride 103 (98-107) mEq/L Carbon Dioxide 25 (21-32) mEq/L Anion Gap 15.3 H (5-15) BUN 12 (7-18) mg/dL Creatinine 0.7 (0.55-1.02) mg/dL Est Cr Clr Drug Dosing 69.21 mL/min Estimated GFR (MDRD) > 60 (>60) mL/min BUN/Creatinine Ratio 17.1 (14-18) Glucose 113 (80-115) mg/dL Calcium 9.3 (8.5-10.1) mg/dL Total Bilirubin 2.0 H (0.2-1.0) mg/dL AST 22 (15-37) U/L ALT 33 (14-59) U/L Alkaline Phosphatase 65 (46-116) U/L Total Protein 7.4 (6.4-8.2) g/dl Albumin 3.7 (3.4-5.0) g/dl Globulin 3.7 gm/dL Albumin/Globulin Ratio 1.0 (1-2) Lipase 107 (73-393) U/L Urine Color Dark yellow (Yellow) Urine Appearance Clear (Clear) Urine pH 6.0 (5.0-8.0) Ur Specific [place] 1.020 (1.005-1.030) Urine Protein Trace H (Negative) Urine Glucose (UA) Negative (Negative) Urine Ketones Negative (Negative) Urine Occult Blood Negative (Negative) Urine Nitrite Negative (Negative) Urine Bilirubin 1+ H (Negative) Urine Urobilinogen 0.2 (0.2-1.0) Ur Leukocyte Esterase Negative (Negative) Urine RBC Not seen (0-5) /hpf Urine WBC 0-5 (0-5) /hpf Ur Epithelial Cells 0-5 (0-5) /hpf Amorphous Sediment Moderate H (NOT SEEN) /hpf Urine Bacteria Moderate H (FEW) /hpf Urine Mucus Many H (FEW) /hpf C.difficile 027-NAP1-B1 C. difficile Tox (PCR) 08/28/18 Range/Units 07:30 WBC (3.98-10.04) K/mm3 RBC (3.98-5.22) M/mm3 Hgb (11.2-15.7) gm/L Hct (34.1-44.9) % MCV (79.4-94.8) fl MCH (25.6-32.2) pg MCHC (32.2-35.5) g/dl RDW Std Deviation (36.4-46.3) fL Plt Count (182-369) K/mm3 MPV (9.4-12.3) fl Neutrophils % (Manual) (40-60) % Band Neutrophils % (0-10) % Lymphocytes % (Manual) (20-40) % Atypical Lymphs % % Monocytes % (Manual) (2-10) % Eosinophils % (Manual) (0.7-5.8) % Basophils % (Manual) (0.1-1.2) Platelet Estimate RBC Morph Comment Sodium (136-145) mEq/L Potassium (3.5-5.1) mEq/L Chloride (98-107) mEq/L Carbon Dioxide (21-32) mEq/L Anion Gap (5-15) BUN (7-18) mg/dL Creatinine (0.55-1.02) mg/dL Est Cr Clr Drug Dosing mL/min Estimated GFR (MDRD) (>60) mL/min BUN/Creatinine Ratio (14-18) Glucose (80-115) mg/dL Calcium (8.5-10.1) mg/dL Total Bilirubin (0.2-1.0) mg/dL AST (15-37) U/L ALT (14-59) U/L Alkaline Phosphatase (46-116) U/L Total Protein (6.4-8.2) g/dl Albumin (3.4-5.0) g/dl Globulin gm/dL Albumin/Globulin Ratio (1-2) Lipase (73-393) U/L Urine Color (Yellow) Urine Appearance (Clear) Urine pH (5.0-8.0) Ur Specific [place] (1.005-1.030) Urine Protein (Negative) Urine Glucose (UA) (Negative) Urine Ketones (Negative) Urine Occult Blood (Negative) Urine Nitrite (Negative) Urine Bilirubin (Negative) Urine Urobilinogen (0.2-1.0) Ur Leukocyte Esterase (Negative) Urine RBC (0-5) /hpf Urine WBC (0-5) /hpf Ur Epithelial Cells (0-5) /hpf Amorphous Sediment (NOT SEEN) /hpf Urine Bacteria (FEW) /hpf Urine Mucus (FEW) /hpf C.difficile [id number] Presumptive negative C. difficile Tox (PCR) Positive H Meds: Medications Generic Name Dose Route Start Last Admin Trade Name Freq PRN Reason Stop Dose Admin Acetaminophen 650 mg 08/28/18 13:49 08/28/18 17:09 Tylenol PO 650 mg Q4H PRN Administration Pain (Mild 1-3)/fever Acetaminophen/Butalbital/Caffeine 1 tab 08/28/18 18:22 Fioricet 325-50-40 Mg PO Q6H PRN Headache Hydrocodone Bitart/Acetaminophen 1 tab 08/28/18 13:49 [place] 325-5 Mg PO Q4H PRN Pain (moderate 4-6) Albuterol/Ipratropium 3 ml 08/28/18 13:49 Duoneb 3.0-0.5 Mg/3 Ml NEB Q4H PRN Shortness Of Breath/wheezing Calcium Polycarbophil 1,250 mg 08/29/18 09:00 Fibercon PO BID PATY Famotidine 20 mg 08/28/18 21:00 08/28/18 21:03 Pepcid PO 20 mg BID PATY Administration Hydralazine HCl 20 mg 08/28/18 13:48 Apresoline IVPUSH Q4H PRN Hypertension Hydrochlorothiazide 12.5 mg 08/29/18 09:00 Hydrochlorothiazide PO DAILY PATY Hydromorphone HCl 0.5 mg 08/28/18 13:49 Dilaudid IVPUSH Q2H PRN Pain (severe 7-10) Sodium Chloride 1,000 mls @ 100 mls/hr 08/28/18 16:45 08/28/18 17:15 Normal Saline IV 100 mls/hr ASDIRECTED PATY Administration Promethazine HCl 25 mg/ Sodium 51 mls @ 100 mls/hr 08/28/18 21:21 08/28/18 22 :51 Chloride IV 100 mls/hr Q6H PRN Administration Nausea/Vomiting Levothyroxine Sodium 50 mcg 08/29/18 06:00 Synthroid PO ACBREAKFAST PATY Lorazepam 0.5 mg 08/28/18 21:05 Ativan PO BID PRN Anxiety Magnesium Sulfate 0 dose 08/28/18 14:00 Pharmacy To Dose - Magnesium Replacement .XX ASDIRECTED PRN RX TO WATCH MAG Metoprolol Succinate 50 mg 08/29/18 09:00 Toprol Xl PO DAILY PATY Metoprolol Tartrate 5 mg 08/28/18 13:48 Lopressor IVPUSH Q4H PRN Tachycardia Multivitamins 1 each 08/28/18 21:30 Thera PO DAILY PRN VITAMIN Ondansetron HCl 4 mg 08/28/18 13:49 08/28/18 19:28 Zofran IV 4 mg Q6H PRN Administration Nausea/Vomiting Potassium Chloride 0 dose 08/28/18 14:00 Pharmacy To Dose - Potassium Replacement .XX ASDIRECTED PRN RX TO WATCH K Rosuvastatin Calcium 20 mg 08/29/18 21:00 Crestor PO BEDTIME PATY Saccharomyces Boulardii 250 mg 08/28/18 15:00 08/28/18 21:03 Florastor PO 250 mg TID PATY Administration Scopolamine 1.5 mg 08/28/18 13:02 08/28/18 14:57 Transderm-Scop TRDERM 1.5 mg Q72H PRN Administration Nausea/Vomiting Sucralfate 1 gm 08/29/18 09:00 Carafate PO DAILY [facility] Temazepam 7.5 mg 08/28/18 13:49 Restoril PO BEDTIME PRN Sleep Vancomycin HCl 250 mg 08/28/18 14:00 08/28/18 21:04 Vancomycin 50 Mg/Ml Soln PO 250 mg QID PATY Administration Discontinued Medications Generic Name Dose Route Start Last Admin Trade Name Freq PRN Reason Stop Dose Admin Diatrizoate Meglum/Diatrizoate Sod 90 ml 08/28/18 06:40 08/28/18 07:16 Gastrografin 37% PO 08/28/18 06:41 90 ml ONETIME ONE Administration Hydromorphone HCl 0.5 mg 08/28/18 05:32 08/28/18 05:45 Dilaudid IVPUSH 08/28/18 05:33 0.5 mg ONETIME STA Administration Hydromorphone HCl 0.5 mg 08/28/18 08:51 08/28/18 09:00 Dilaudid IVPUSH 08/28/18 08:52 0.5 mg ONETIME ONE Administration Hydromorphone HCl 0.5 mg 08/28/18 13:00 08/28/18 13:07 Dilaudid IVPUSH 08/28/18 13:01 0.5 mg ONETIME ONE Administration Sodium Chloride 1,000 mls @ 100 mls/hr 08/28/18 05:45 08/28/18 05:43 Normal Saline IV 100 mls/hr ASDIRECTED PATY Administration Sodium Chloride 1,000 mls @ 150 mls/hr 08/28/18 10:00 08/28/18 09:55 Normal Saline IV 150 mls/hr ASDIRECTED PATY Administration Iopamidol 100 ml 08/28/18 06:40 08/28/18 07:16 Isovue-370 (76%) IV 08/28/18 06:41 100 ml ONETIME ONE Administration Metoclopramide HCl 5 mg 08/28/18 21:17 Reglan IVPUSH Q6H PRN Nausea Non-Formulary Medication 15 gm 08/28/18 17:18 Fluocinonide TOP DAILY PRN Rash Ondansetron HCl 4 mg 08/28/18 05:32 08/28/18 05:44 Zofran IVPUSH 08/28/18 05:33 4 mg ONETIME ONE Administration Ondansetron HCl 4 mg 08/28/18 08:52 08/28/18 09:00 Zofran IVPUSH 08/28/18 08:53 4 mg ONETIME ONE Administration Ondansetron HCl 4 mg 08/28/18 13:01 08/28/18 13:07 Zofran IVPUSH 4 mg Q6H PRN Administration Nausea/Vomiting Potassium Chloride 40 meq 08/28/18 14:30 08/28/18 18:58 Klor-Con M20 PO 08/28/18 18:31 40 meq Q4H PATY Administration Saccharomyces Boulardii 250 mg 08/29/18 09:00 Florastor PO DAILY PATY Vancomycin HCl 125 mg 08/28/18 09:51 08/28/18 09:59 Vancomycin 50 Mg/Ml Soln PO 08/28/18 09:52 125 mg ONETIME ONE Administration - Re-Assessments/Exams Free Text/Narrative Re-Assessment/Exam: 08/28/18 05:34 The patient has both lower abdominal cramps and generalized abdominal tenderness , but more tender in the lower abdomen than the upper. I have ordered blood work , a urinalysis, and a CT scan of the abdomen and pelvis with oral and IV contrast. If the patient can provide a stool sample, I will run some studies, including a C. difficile by PCR. In the meantime, the patient will receive some Dilaudid, Zofran, and IV fluid. 08/28/18 07:[address] Allen, and care of the patient turned over to him at this time, for change of shift.
[2018-08-28] MEDS ORDERED: Ondansetron 4 MG/2 ML SDV IVPUSH ONE ×2 (05:32→08:52)
[2018-08-28] MEDS ORDERED: HYDROmorphone 1 MG/ML Syringe IVPUSH STA (05:32)
[2018-08-28] MEDS ORDERED: Sodium Chloride 0.9% 1,000 ML IV SCH ×2 (05:45→10:00)
[2018-08-28] MEDS ORDERED: Diatrizoate Meglumine/Diatrizoate Sodium 37% 120 ML Bottle PO ONE (06:40)
[2018-08-28] MEDS ORDERED: Iopamidol 755 Mg/ML 200 ML Bottle IV ONE (06:40)
--- NOTE | 2018-08-28 07:42 | CT ---
CT abdomen and pelvis Technique: Multiple axial sections were obtained from above the dome of the diaphragm inferiorly through the pubic symphysis. Intravenous contrast and oral contrast has been given. Delayed images were also obtained from above the dome of the diaphragm inferiorly through the pubic symphysis. Comparison: No prior abdominal imaging is available. Findings: Diverticuli are seen within the sigmoid colon and lesser diverticuli within other portions of the colon. Mild areas of wall edema are noted within the colon suggesting mild diffuse colitis. Visualized lung bases are clear. Liver shows no focal parenchymal abnormality. Large hiatal hernia is seen. Spleen appears normal. Pancreas is within normal limits. Surgical clips seen from prior cholecystectomy. Common bile duct mildly prominent likely residual from prior cholecystectomy. Kidneys show symmetric contrast enhancement without hydronephrosis or mass. Aorta shows no aneurysm. No retroperitoneal adenopathy is seen. Appendix is seen and is normal in size. No pelvic mass or adenopathy is seen. Delayed images show contrast within the ureters and bladder. Bone window settings were reviewed which show severe disc space narrowing at L5-S1 with vacuum phenomena. Mild scattered endplate osteophytes are seen. Degenerative apophyseal change is noted within the lower lumbar spine. Impression: 1. Mild areas of wall edema throughout the colon suggesting mild diffuse and nonspecific colitis. 2. Other incidental findings as noted above. Diagnostic code #3
[2018-08-28] MEDS ORDERED: HYDROmorphone 0.5 MG/0.5 ML Syringe IVPUSH ONE ×2 (08:51→13:00)
[2018-08-28] MEDS ORDERED: Vancomycin 50 MG/ML Oral Solution Bottle Kit PO ONE (09:51)
[2018-08-28] MEDS ORDERED: Ondansetron 4 MG/2 ML SDV IVPUSH PRN (13:01)
[2018-08-28] MEDS ORDERED: Scopolamine 1.5 MG Transdermal Patch TRDERM PRN (13:02)
[2018-08-28] MEDS ORDERED: hydrALAZINE 20 MG/ML SDV IVPUSH PRN (13:48)
[2018-08-28] MEDS ORDERED: Metoprolol Tartrate 5 MG/5 ML SDV IVPUSH PRN (13:48)
[2018-08-28] MEDS ORDERED: Albuterol/Ipratropium 3.0-0.5 MG/3 ML Neb Soln NEB PRN (13:49)
[2018-08-28] MEDS ORDERED: Acetaminophen/HYDROcodone 325-5 MG Tab PO PRN (13:49)
[2018-08-28] MEDS ORDERED: HYDROmorphone 0.5 MG/0.5 ML Syringe IVPUSH PRN (13:49)
[2018-08-28] MEDS ORDERED: Acetaminophen 325 MG Tab PO PRN (13:49)
[2018-08-28] MEDS ORDERED: Temazepam 7.5 MG Cap PO PRN (13:49)
--- NOTE | 2018-08-28 13:53 | PCM.HP ---
H&P History of Present Illness - General Date of Service: 08/28/18 Admit Problem/Dx: Admission Diagnosis/Problem Admission Diagnosis/Problem Clostridium difficile diarrhea Source of Information: Patient, Provider, RN Notes Reviewed History Limitations: Reports: No Limitations - History of Present Illness Initial Comments - Free Text/Narative: This is a 68 yo elderly white female with past medical hx/o Impaired Vision, HTN , HLD, GERD/Hiatal Hernia, Hx/o Diverticulosis with Diverticulitis, Hypothyroidism, and Anxiety who comes in for evaluation of 2 day hx/o lower abdominal pain, L>R, associated with watery diarrhea, nausea and a temperature of 100.1 degrees. Her fever resolves after taking 2 tablets of Advil last night. She states that she had a similar episode earlier this month while she was in [place] and was diagnosed with proctitis at [facility]. She was prescribed and treated with a 10-day course of Cipro and Flagyl, which she completed w/o any issues. She states, her symptoms did resolve. Her initial work up in ED shows a CBC remarkable for WBC of 10.30, Neutrophils of 94%, and Lymphocytes of 4%. Her Chemistry is significant for K of 3.3, AG of 15.3, and Total Bilirubin of 2. Her UA is not suggestive of UTI. She is positive for C. difficile screening. Abdominal/Pelvis CT scan report reads mild areas of wall edema throughout the colon suggesting mild diffuse and non- specific colitis. Patient is being admitted to treatment of C. difficile Colitis. She is full code. Abdominal Pain Score (Numeric/FACES): 8 - Related Data Allergies/Adverse Reactions: Allergies Allergy/AdvReac Type Severity Reaction Status Date / Time No Known Allergies Allergy Verified 08/28/18 05:04 Home Medications: Home Meds Calcium Polycarbophil [Fibercon] 2 tab PO BID 12/25/17 [History] LORazepam [Ativan] 0.5 mg PO BID PRN 12/25/17 [History] Levothyroxine [Synthroid] 50 mcg PO ACBREAKFAST 12/25/17 [History] Multivitamin with Minerals [Multiple Vitamin] 1 tab PO DAILY PRN 12/25/17 [ History] Pantoprazole Sodium [Protonix] 40 mg PO BID 12/25/17 [History] Rosuvastatin [Crestor] 20 mg PO BEDTIME 12/25/17 [History] Sucralfate [Carafate] 1 gm PO DAILY 12/25/17 [History] Fluocinonide [Lidex 0.05% Crm] 15 gm TOP DAILY PRN 08/28/18 [History] L.acidoph,Paracasei, B.lactis [Probiotic] 1 each PO DAILY 08/28/18 [History] Metoprolol Succinate [Toprol XL 50mg] 50 mg PO DAILY 08/28/18 [History] Omeprazole 20 mg PO BIDAC 08/28/18 [History] hydroCHLOROthiazide [Hydrochlorothiazide] 12.5 mg PO DAILY 08/28/18 [History] Past Medical History HEENT History: Reports: Impaired Vision Cardiovascular History: Reports: High Cholesterol, Hypertension Gastrointestinal History: Reports: Colon Polyp, Diverticulosis (diverticulitis) , Gastritis, GERD, Hiatal Hernia (large) Other Gastrointestinal History: esophagitis Psychiatric History: Reports: Anxiety Endocrine/Metabolic History: Reports: Hypothyroidism Other Dermatologic History: rashes - Past Surgical History HEENT Surgical History: Reports: Oral Surgery (wisdom teeth extraction) GI Surgical History: Reports: Cholecystectomy (around 1999), Colonoscopy (x 1), EGD (x 1) Female Surgical History: Reports: D&C (x 2), Hysterectomy (complete), Salpingo-Oophorectomy, Tubal Ligation Social & Family History - Family History Family Medical History: Noncontributory - Tobacco Use Smoking Status *Q: Never Smoker - Caffeine Use Caffeine Use: Reports: None - Recreational Drug Use Recreational Drug Use: No - Living Situation & Occupation Living situation: Reports: , with Spouse Occupation: Retired H&P Review of Systems - Review of Systems: Review Of Systems: See Below General: Reports: Fever, Decreased Appetite. Denies: Chills, Malaise, Fatigue HEENT: Reports: No Symptoms Pulmonary: Denies: Shortness of Breath Cardiovascular: Denies: Chest Pain, Dyspnea on Exertion, Edema, Lightheadedness , Syncope, Claudication, Blood Pressure Problem Gastrointestinal: Reports: Abdominal Pain, Diarrhea, Decreased Appetite, Nausea. Denies: Bloody Stool, Hematemesis, Melena, Vomiting Genitourinary: Reports: No Symptoms Musculoskeletal: Reports: No Symptoms Skin: Denies: Cyanosis, Jaundice, Pallor, Bruising, Rash, Erythema Psychiatric: Denies: Depression, Anxiety, Agitation, Hallucinations Neurological: Denies: Confusion, Dizziness, Headache, Difficulty Walking, Weakness, Gait Disturbance Hematologic/Lymphatic: Denies: Anemia Immunologic: Reports: No Symptoms Exam - Exam Exam: See Below - Vital Signs Vital Signs: Last Vital Signs Temp 37.4 C 08/28/18 05:01 Pulse 81 08/28/18 05:01 Resp 16 08/28/18 05:01 BP 128/68 08/28/18 05:01 Pulse Ox 95 08/28/18 05:01 Weight: 77.111 kg - Exam General: Alert, Oriented, Cooperative, Mild Distress HEENT: Conjunctiva Clear, EACs Clear, Hearing Intact, Mucosa Moist & [place], Nares Patent, Normal Nasal Septum, Posterior Pharynx Clear, Pupils Equal, Pupils Reactive Neck: Supple, Trachea Midline Lungs: Normal Respiratory Effort, Other (gastric sounds ) Cardiovascular: Regular Rate, Regular Rhythm GI/Abdominal Exam: Normal Bowel Sounds, Soft, No Organomegaly, No Distention, No Abnormal Bruit, Tender (left lower abdomen). No: Guarding, Rigid, Rebound (Female) Exam: Deferred Back Exam: Normal Inspection, Decreased Range of Motion Extremities: Normal Inspection, Normal Range of Motion, Non-Tender, No Pedal Edema, Normal Capillary Refill Peripheral Pulses: 2+: Posterior Tibial (L), Dorsalis Pedis (L), Dorsalis Pedis (R) Skin: Dry, Intact Neuro Extensive - Mental Status: Oriented x3, Normal Cognition, Memory Intact Neuro Extensive - Motor, Sensory, Reflexes: CN II-XII Intact, Normal Gait Psychiatric: Alert, Normal Affect, Normal Mood - Patient Data Lab Results Last 24 hrs: Laboratory Results - last 24 hr 08/28/18 08/28/18 08/28/18 Range/Units 05:04 05:04 05:40 WBC 10.30 H (3.98-10.04) K/mm3 RBC 4.62 (3.98-5.22) M/mm3 Hgb 13.8 (11.2-15.7) gm/L Hct 40.3 (34.1-44.9) % MCV 87.2 (79.4-94.8) fl MCH 29.9 (25.6-32.2) pg MCHC 34.2 (32.2-35.5) g/dl RDW Std Deviation 41.9 (36.4-46.3) fL Plt Count 225 (182-369) K/mm3 MPV 11.1 (9.4-12.3) fl Neutrophils % (Manual) 94 H (40-60) % Band Neutrophils % 0 (0-10) % Lymphocytes % (Manual) 4 L (20-40) % Atypical Lymphs % 0 % Monocytes % (Manual) 2 (2-10) % Eosinophils % (Manual) 0 L (0.7-5.8) % Basophils % (Manual) 0 L (0.1-1.2) Platelet Estimate Adequate RBC Morph Comment Normal Sodium 140 (136-145) mEq/L Potassium 3.3 L (3.5-5.1) mEq/L Chloride 103 (98-107) mEq/L Carbon Dioxide 25 (21-32) mEq/L Anion Gap 15.3 H (5-15) BUN 12 (7-18) mg/dL Creatinine 0.7 (0.55-1.02) mg/dL Est Cr Clr Drug Dosing 69.21 mL/min Estimated GFR (MDRD) > 60 (>60) mL/min BUN/Creatinine Ratio 17.1 (14-18) Glucose 113 (80-115) mg/dL Calcium 9.3 (8.5-10.1) mg/dL Total Bilirubin 2.0 H (0.2-1.0) mg/dL AST 22 (15-37) U/L ALT 33 (14-59) U/L Alkaline Phosphatase 65 (46-116) U/L Total Protein 7.4 (6.4-8.2) g/dl Albumin 3.7 (3.4-5.0) g/dl Globulin 3.7 gm/dL Albumin/Globulin Ratio 1.0 (1-2) Lipase 107 (73-393) U/L Urine Color Dark yellow (Yellow) Urine Appearance Clear (Clear) Urine pH 6.0 (5.0-8.0) Ur Specific [place] 1.020 (1.005-1.030) Urine Protein Trace H (Negative) Urine Glucose (UA) Negative (Negative) Urine Ketones Negative (Negative) Urine Occult Blood Negative (Negative) Urine Nitrite Negative (Negative) Urine Bilirubin 1+ H (Negative) Urine Urobilinogen 0.2 (0.2-1.0) Ur Leukocyte Esterase Negative (Negative) Urine RBC Not seen (0-5) /hpf Urine WBC 0-5 (0-5) /hpf Ur Epithelial Cells 0-5 (0-5) /hpf Amorphous Sediment Moderate H (NOT SEEN) /hpf Urine Bacteria Moderate H (FEW) /hpf Urine Mucus Many H (FEW) /hpf C.difficile 027-NAP1-B1 C. difficile Tox (PCR) 08/28/18 Range/Units 07:30 WBC (3.98-10.04) K/mm3 RBC (3.98-5.22) M/mm3 Hgb (11.2-15.7) gm/L Hct (34.1-44.9) % MCV (79.4-94.8) fl MCH (25.6-32.2) pg MCHC (32.2-35.5) g/dl RDW Std Deviation (36.4-46.3) fL Plt Count (182-369) K/mm3 MPV (9.4-12.3) fl Neutrophils % (Manual) (40-60) % Band Neutrophils % (0-10) % Lymphocytes % (Manual) (20-40) % Atypical Lymphs % % Monocytes % (Manual) (2-10) % Eosinophils % (Manual) (0.7-5.8) % Basophils % (Manual) (0.1-1.2) Platelet Estimate RBC Morph Comment Sodium (136-145) mEq/L Potassium (3.5-5.1) mEq/L Chloride (98-107) mEq/L Carbon Dioxide (21-32) mEq/L Anion Gap (5-15) BUN (7-18) mg/dL Creatinine (0.55-1.02) mg/dL Est Cr Clr Drug Dosing mL/min Estimated GFR (MDRD) (>60) mL/min BUN/Creatinine Ratio (14-18) Glucose (80-115) mg/dL Calcium (8.5-10.1) mg/dL Total Bilirubin (0.2-1.0) mg/dL AST (15-37) U/L ALT (14-59) U/L Alkaline Phosphatase (46-116) U/L Total Protein (6.4-8.2) g/dl Albumin (3.4-5.0) g/dl Globulin gm/dL Albumin/Globulin Ratio (1-2) Lipase (73-393) U/L Urine Color (Yellow) Urine Appearance (Clear) Urine pH (5.0-8.0) Ur Specific [place] (1.005-1.030) Urine Protein (Negative) Urine Glucose (UA) (Negative) Urine Ketones (Negative) Urine Occult Blood (Negative) Urine Nitrite (Negative) Urine Bilirubin (Negative) Urine Urobilinogen (0.2-1.0) Ur Leukocyte Esterase (Negative) Urine RBC (0-5) /hpf Urine WBC (0-5) /hpf Ur Epithelial Cells (0-5) /hpf Amorphous Sediment (NOT SEEN) /hpf Urine Bacteria (FEW) /hpf Urine Mucus (FEW) /hpf C.difficile 027-NAP1-B1 Presumptive negative C. difficile Tox (PCR) Positive H Result Diagrams: 08/30/18 06:17 08/30/18 06:17 Demetrio Results Last 24 hrs: Microbiology 08/28/18 07:30 Stool for WBCs - Final Stool / Feces Problem List Initiated/Reviewed/Updated: Yes Orders Last 24hrs: Active Orders 24 hr Category Date Time Status Admission Status [Patient Status] [ADT] Routine ADT 08/28/18 10:23 Active Antiembolic Devices [RC] PER UNIT ROUTINE Care 08/28/18 13:50 Ordered Height and Weight [RC] DAILY Care 08/28/18 13:49 Ordered Intake and Output [RC] QSHIFT Care 08/28/18 13:49 Ordered Oxygen Therapy [RC] PRN Care 08/28/18 13:49 Ordered RT Aerosol Therapy [RC] ASDIRECTED Care 08/28/18 13:50 Ordered Up ad Melony [RC] ASDIRECTED Care 08/28/18 13:49 Ordered VTE/DVT Education [RC] PER UNIT ROUTINE Care 08/28/18 13:49 Ordered Vital Signs [RC] Q4H Care 08/28/18 13:49 Ordered Consult to Case Management/Financial Services Education Consultant [CONS] Cons 08/28/18 13:49 Ordered Routine Consult to Spiritual Care [CONS] Routine Cons 08/28/18 13:49 Ordered Clear Liquid Diet [DIET] Diet 08/28/18 Lunch Ordered BASIC METABOLIC PANEL,BMP [CHEM] AM Lab 08/29/18 05:11 Ordered BASIC METABOLIC PANEL,BMP [CHEM] AM Lab 08/30/18 05:11 Ordered BASIC METABOLIC PANEL,BMP [CHEM] AM Lab 08/31/18 05:11 Ordered BASIC METABOLIC PANEL,BMP [CHEM] AM Lab 09/01/18 05:11 Ordered C-REACTIVE PROTEIN [CHEM] AM Lab 08/29/18 05:11 Ordered C-REACTIVE PROTEIN [CHEM] AM Lab 08/30/18 05:11 Ordered C-REACTIVE PROTEIN [CHEM] AM Lab 08/31/18 05:11 Ordered C-REACTIVE PROTEIN [CHEM] AM Lab 09/01/18 05:11 Ordered CBC WITH AUTO DIFF [HEME] AM Lab 08/29/18 05:11 Ordered CBC WITH AUTO DIFF [HEME] AM Lab 08/30/18 05:11 Ordered CBC WITH AUTO DIFF [HEME] AM Lab 08/31/18 05:11 Ordered CBC WITH AUTO DIFF [HEME] AM Lab 09/01/18 05:11 Ordered CULTURE STOOL + SHIGATOX [RM] Stat Lab 08/28/18 07:30 Ordered MAGNESIUM [CHEM] AM Lab 08/29/18 05:11 Ordered MAGNESIUM [CHEM] AM Lab 08/30/18 05:11 Ordered MAGNESIUM [CHEM] AM Lab 08/31/18 05:11 Ordered MAGNESIUM [CHEM] AM Lab 09/01/18 05:11 Ordered OVA & PARASITES BY IMMUNOASSAY [MREF] Stat Lab 08/28/18 07:30 Received Acetaminophen [Tylenol] Med 08/28/18 13:49 Ordered 650 mg PO Q4H PRN Acetaminophen/HYDROcodone [[place] 325-5 MG] Med 08/28/18 13:49 Ordered 1 tab PO Q4H PRN Albuterol/Ipratropium [DuoNeb 3.0-0.5 MG/3 ML] Med 08/28/18 13:49 Ordered 3 ml NEB Q4H PRN HYDROmorphone [Dilaudid] Med 08/28/18 13:49 Ordered 0.5 mg IVPUSH Q2H PRN Metoprolol Tartrate [Lopressor] Med 08/28/18 13:48 Ordered 5 mg IVPUSH Q4H PRN Ondansetron [Zofran] Med 08/28/18 13:49 Ordered 4 mg IV Q6H PRN Ondansetron [Zofran] Med 08/28/18 13:01 Active 4 mg IVPUSH Q6H PRN Pharmacy to Dose - Magnesium R [Pharmacy to Dose - Med 08/28/18 14:00 Ordered Magnesium Replacement] 1 dose .XX ASDIRECTED Pharmacy to Dose - Potassium R [Pharmacy to Dose - Med 08/28/18 14:00 Ordered Potassium Replacement] 1 dose .XX ASDIRECTED Saccharomyces Boulardii [Florastor] Med 08/28/18 15:00 Ordered 250 mg PO TID Scopolamine [Transderm-Scop] Med 08/28/18 13:02 Active 1.5 mg TRDERM Q72H PRN Sodium Chloride 0.9% [Normal Saline] 1,000 ml Med 08/28/18 05:45 Active IV ASDIRECTED Sodium Chloride 0.9% [Normal Saline] 1,000 ml Med 08/28/18 10:00 Active IV ASDIRECTED Temazepam [Restoril] Med 08/28/18 13:49 Ordered 7.5 mg PO BEDTIME PRN Vancomycin [Vancomycin 50 MG/ML Soln] Med 08/28/18 18:00 Ordered 250 mg PO QID hydrALAZINE [Apresoline] Med 08/28/18 13:48 Ordered 20 mg IVPUSH Q4H PRN Isolation [COMM] Stat Oth 08/28/18 07:30 Ordered Sequential Compression Device [OM.PC] Per Unit Routine Oth 08/28/18 13:49 Ordered Resuscitation Status Routine Resus Stat 08/28/18 13:49 Ordered Medication Orders Acetaminophen (Tylenol) 650 mg PO Q4H PRN PRN Reason: Pain (Mild 1-3)/fever Hydrocodone Bitart/Acetaminophen ([place] 325-5 Mg) 1 tab PO Q4H PRN PRN Reason: Pain (moderate 4-6) Albuterol/Ipratropium (Duoneb 3.0-0.5 Mg/3 Ml) 3 ml NEB Q4H PRN PRN Reason: Shortness Of Breath/wheezing Hydralazine HCl (Apresoline) 20 mg IVPUSH Q4H PRN PRN Reason: Hypertension Hydromorphone HCl (Dilaudid) 0.5 mg IVPUSH Q2H PRN PRN Reason: Pain (severe 7-10) Sodium Chloride (Normal Saline) 1,000 mls @ 100 mls/hr IV ASDIRECTED PATY Last Admin: 08/28/18 05:43 Dose: 100 mls/hr Sodium Chloride (Normal Saline) 1,000 mls @ 150 mls/hr IV ASDIRECTED [facility] Last Admin: 08/28/18 09:55 Dose: 150 mls/hr Magnesium Sulfate (Pharmacy To Dose - Magnesium Replacement) 1 dose .XX ASDIRECTED [facility] Metoprolol Tartrate (Lopressor) 5 mg IVPUSH Q4H PRN PRN Reason: Tachycardia Ondansetron HCl (Zofran) 4 mg IVPUSH Q6H PRN PRN Reason: Nausea/Vomiting Last Admin: 08/28/18 13:07 Dose: 4 mg Ondansetron HCl (Zofran) 4 mg IV Q6H PRN PRN Reason: Nausea/Vomiting Potassium Chloride (Pharmacy To Dose - Potassium Replacement) 1 dose .XX ASDIRECTED [facility] Saccharomyces Boulardii (Florastor) 250 mg PO TID [facility] Scopolamine (Transderm-Scop) 1.5 mg TRDERM Q72H PRN PRN Reason: Nausea/Vomiting Temazepam (Restoril) 7.5 mg PO BEDTIME PRN PRN Reason: Sleep Vancomycin HCl (Vancomycin 50 Mg/Ml Soln) 250 mg PO QID [facility] Assessment/Plan Comment:: C. Diff Colitis - Recently treated for proctitis with Cipro and Flagyl - Denies having unusual diet or drinks - No recent travel out side the country - No reports of camping or hiking out - Colonoscopy/EGD 5 years ago with polypectomy; she is due in 5 years - Afebrile w/ mild leukocytosis (WBC of 10.30); CRP is pending - Watery diarrhea and reduced appetite - C. diff positive on screening - Start oral Vancomycin Q6H plus probiotics - Okayed for patient to have Kefir for additional probiotic supplement Hypokalemia - K 3.3 - 2/2 GI Loss - Replete and monitor Chronic: Impaired Vision HTN HLD GERD/Hiatal Hernia Hx/o Diverticulosis with Diverticulitis Hypothyroidism Anxiety Plan: Admit to [facility] Resume Home Meds except PPI (known to cause CDAD) Routine AM Labs GI/DVT PPx: SCDs and H2B Clear liquid diet IVF for hydration SW/CM for d/c planning Code status: 1
[2018-08-28] MEDS: Vancomycin 50 MG/ML Oral Solution Bottle Kit PO SCH ×3 (14:54→21:04)
[2018-08-28] MEDS: Saccharomyces Boulardii (Probiotic) 250 MG Cap PO SCH ×2 (14:58→21:03)
[2018-08-28] MEDS: Potassium Chloride 20 MEQ Tab.ER PO SCH ×2 (14:58→18:58)
[2018-08-28] MEDS: Sodium Chloride 0.9% 1,000 ML IV SCH (17:15)
[2018-08-28] MEDS ORDERED: FLUOCINONIDE TOP PRN (17:18)
[2018-08-28] MEDS: Ondansetron 4 MG/2 ML SDV IV PRN (19:28)
[2018-08-28] MEDS: Famotidine 20 MG Tab PO SCH (21:03)
[2018-08-28] MEDS ORDERED: LORazepam 0.5 MG Tab PO PRN (21:05)
[2018-08-28] MEDS ORDERED: Metoclopramide 10 MG/2 ML SDV IVPUSH PRN (21:17)
[2018-08-28] MEDS ORDERED: Promethazine 25 MG in Sodium Chloride 0.9% 50 ML IV PRN (21:21)
[2018-08-28] MEDS ORDERED: Multivitamins,Therapeutic Tab PO PRN (21:30)
[2018-08-29] MEDS: Sodium Chloride 0.9% 1,000 ML IV SCH ×2 (03:54→14:02)
[2018-08-29] MEDS: Levothyroxine 50 MCG Tab PO SCH (06:43)
--- NOTE | 2018-08-29 08:39 | PCM.PN ---
- General Info Date of Service: 08/29/18 Admission Dx/Problem (Free Text): Admission Diagnosis/Problem Admission Diagnosis/Problem Clostridium difficile diarrhea Subjective Update: Follow Up Functional Status: Reports: Pain Controlled, Tolerating Diet, Ambulating, Urinating. Denies: New Symptoms Pain Score: 2 - Review of Systems General: Denies: Fever, Weakness, Fatigue, Malaise, Chills HEENT: Reports: No Symptoms Pulmonary: Denies: Shortness of Breath Cardiovascular: Denies: Chest Pain, Edema, Lightheadedness Gastrointestinal: Reports: Abdominal Pain (mild pain), Diarrhea (x 7 since last night), Flatus. Denies: Decreased Appetite, Nausea, Vomiting Genitourinary: Reports: No Symptoms Musculoskeletal: Reports: No Symptoms Skin: Denies: Cyanosis, Mottled, Pallor, Diaphoresis, Bruising Neurological: Denies: Confusion, Difficulty Walking, Weakness, Gait Disturbance Psychiatric: Denies: Depression, Anxiety, Agitation, Hallucinations Systems Review Comment:: No significant overnight issues. Had a total of 7 bouts of watery diarrhea since last night until this AM. She is afebrile w/ resolved leukocytosis. Her K remains mildly low at 3.4 and her Mg level is noted low at 1.5. Her CRP is 9.1. She has no other complaints. She is tolerating current diet and has been ambulating as directed. - Patient Data Vitals - Most Recent: Last Vital Signs Temp 37.8 C 08/29/18 08:19 Pulse 87 08/29/18 08:19 Resp 14 08/29/18 08:19 BP 95/52 L 08/29/18 08:19 Pulse Ox 93 L 08/29/18 08:19 Weight - Most Recent: 83.007 kg I&O - Last 24 Hours: Intake & Output 08/28/18 08/29/18 08/29/18 22:59 06:59 14:59 Intake Total 1330 2789 Output Total 550 Balance 1330 2239 Lab Results Last 24 Hours: Laboratory Results - last 24 hr 08/28/18 08/29/18 08/29/18 Range/Units 07:30 06:15 06:15 WBC 7.45 (3.98-10.04) K/mm3 RBC 3.91 L (3.98-5.22) M/mm3 Hgb 11.5 D (11.2-15.7) gm/L Hct 35.2 (34.1-44.9) % MCV 90.0 (79.4-94.8) fl MCH 29.4 (25.6-32.2) pg MCHC 32.7 (32.2-35.5) g/dl RDW Std Deviation 43.6 (36.4-46.3) fL Plt Count 167 L (182-369) K/mm3 MPV 10.6 (9.4-12.3) fl Neut % (Auto) 80.3 H (34.0-71.1) % Lymph % (Auto) 11.7 L (19.3-51.7) % Green % (Auto) 7.2 (4.7-12.5) % Eos % (Auto) 0.4 L (0.7-5.8) Baso % (Auto) 0.1 (0.1-1.2) % Neut # (Auto) 5.98 (1.56-6.13) K/mm3 Lymph # (Auto) 0.87 L (1.18-3.74) K/mm3 [place] # (Auto) 0.54 H (0.24-0.36) K/mm3 Eos # (Auto) 0.03 L (0.04-0.36) K/mm3 Baso # (Auto) 0.01 (0.01-0.08) K/mm3 Sodium 141 (136-145) mEq/L Potassium 3.4 L (3.5-5.1) mEq/L Chloride 108 H (98-107) mEq/L Carbon Dioxide 23 (21-32) mEq/L Anion Gap 13.4 (5-15) BUN 7 (7-18) mg/dL Creatinine 0.7 (0.55-1.02) mg/dL Est Cr Clr Drug Dosing 69.21 mL/min Estimated GFR (MDRD) > 60 (>60) mL/min BUN/Creatinine Ratio 10.0 L (14-18) Glucose 89 (80-115) mg/dL Calcium 8.3 L (8.5-10.1) mg/dL Magnesium 1.5 L (1.8-2.4) mg/dl C-Reactive Protein 9.1 H* (<1.0) mg/dL C.difficile [id number] Presumptive negative C. difficile Tox (PCR) Positive H Demetrio Results Last 24 Hours: Microbiology 08/28/18 07:30 Stool Culture - Preliminary Stool / Feces 08/28/18 07:30 Stool for WBCs - Final Stool / Feces Med Orders - Current: Current Medications Acetaminophen (Tylenol) 650 mg PO Q4H PRN PRN Reason: Pain (Mild 1-3)/fever Last Admin: 08/28/18 17:09 Dose: 650 mg Acetaminophen/Butalbital/Caffeine (Fioricet 325-50-40 Mg) 1 tab PO Q6H PRN PRN Reason: Headache Hydrocodone Bitart/Acetaminophen ([place] 325-5 Mg) 1 tab PO Q4H PRN PRN Reason: Pain (moderate 4-6) Albuterol/Ipratropium (Duoneb 3.0-0.5 Mg/3 Ml) 3 ml NEB Q4H PRN PRN Reason: Shortness Of Breath/wheezing Calcium Polycarbophil (Fibercon) 1,250 mg PO BID [facility] Famotidine (Pepcid) 20 mg PO BID [facility] Last Admin: 08/28/18 21:03 Dose: 20 mg Hydralazine HCl (Apresoline) 20 mg IVPUSH Q4H PRN PRN Reason: Hypertension Hydrochlorothiazide (Hydrochlorothiazide) 12.5 mg PO DAILY [facility] Hydromorphone HCl (Dilaudid) 0.5 mg IVPUSH Q2H PRN PRN Reason: Pain (severe 7-10) Sodium Chloride (Normal Saline) 1,000 mls @ 100 mls/hr IV ASDIRECTED [facility] Last Admin: 08/29/18 03:54 Dose: 100 mls/hr Promethazine HCl 25 mg/ Sodium (Chloride) 51 mls @ 100 mls/hr IV Q6H PRN PRN Reason: Nausea/Vomiting Last Admin: 08/28/18 22:51 Dose: 100 mls/hr Levothyroxine Sodium (Synthroid) 50 mcg PO ACBREAKFAST [facility] Last Admin: 08/29/18 06:43 Dose: 50 mcg Lorazepam (Ativan) 0.5 mg PO BID PRN PRN Reason: Anxiety Magnesium Sulfate (Pharmacy To Dose - Magnesium Replacement) 0 dose .XX ASDIRECTED PRN PRN Reason: RX TO WATCH MAG Metoprolol Succinate (Toprol Xl) 50 mg PO DAILY [facility] Metoprolol Tartrate (Lopressor) 5 mg IVPUSH Q4H PRN PRN Reason: Tachycardia Multivitamins (Thera) 1 each PO DAILY PRN PRN Reason: VITAMIN Ondansetron HCl (Zofran) 4 mg IV Q6H PRN PRN Reason: Nausea/Vomiting Last Admin: 08/28/18 19:28 Dose: 4 mg Potassium Chloride (Pharmacy To Dose - Potassium Replacement) 0 dose .XX ASDIRECTED PRN PRN Reason: RX TO WATCH K Rosuvastatin Calcium (Crestor) 20 mg PO BEDTIME [facility] Saccharomyces Boulardii (Florastor) 250 mg PO TID [facility] Last Admin: 08/28/18 21:03 Dose: 250 mg Scopolamine (Transderm-Scop) 1.5 mg TRDERM Q72H PRN PRN Reason: Nausea/Vomiting Last Admin: 08/28/18 14:57 Dose: 1.5 mg Sucralfate (Carafate) 1 gm PO DAILY [facility] Temazepam (Restoril) 7.5 mg PO BEDTIME PRN PRN Reason: Sleep Vancomycin HCl (Vancomycin 50 Mg/Ml Soln) 250 mg PO QID [facility] Last Admin: 08/28/18 21:04 Dose: 250 mg Discontinued Medications Diatrizoate Meglum/Diatrizoate Sod (Gastrografin 37%) 90 ml PO ONETIME ONE Stop: 08/28/18 06:41 Last Admin: 08/28/18 07:16 Dose: 90 ml Hydromorphone HCl (Dilaudid) 0.5 mg IVPUSH ONETIME STA Stop: 08/28/18 05:33 Last Admin: 08/28/18 05:45 Dose: 0.5 mg Hydromorphone HCl (Dilaudid) 0.5 mg IVPUSH ONETIME ONE Stop: 08/28/18 08:52 Last Admin: 08/28/18 09:00 Dose: 0.5 mg Hydromorphone HCl (Dilaudid) 0.5 mg IVPUSH ONETIME ONE Stop: 08/28/18 13:01 Last Admin: 08/28/18 13:07 Dose: 0.5 mg Sodium Chloride (Normal Saline) 1,000 mls @ 100 mls/hr IV ASDIRECTED [facility] Last Admin: 08/28/18 05:43 Dose: 100 mls/hr Sodium Chloride (Normal Saline) 1,000 mls @ 150 mls/hr IV ASDIRECTED [facility] Last Admin: 08/28/18 09:55 Dose: 150 mls/hr Iopamidol (Isovue-370 (76%)) 100 ml IV ONETIME ONE Stop: 08/28/18 06:41 Last Admin: 08/28/18 07:16 Dose: 100 ml Metoclopramide HCl (Reglan) 5 mg IVPUSH Q6H PRN PRN Reason: Nausea Non-Formulary Medication (Fluocinonide) 15 gm TOP DAILY PRN PRN Reason: Rash Ondansetron HCl (Zofran) 4 mg IVPUSH ONETIME ONE Stop: 08/28/18 05:33 Last Admin: 08/28/18 05:44 Dose: 4 mg Ondansetron HCl (Zofran) 4 mg IVPUSH ONETIME ONE Stop: 08/28/18 08:53 Last Admin: 08/28/18 09:00 Dose: 4 mg Ondansetron HCl (Zofran) 4 mg IVPUSH Q6H PRN PRN Reason: Nausea/Vomiting Last Admin: 08/28/18 13:07 Dose: 4 mg Potassium Chloride (Klor-Con M20) 40 meq PO Q4H [facility] Stop: 08/28/18 18:31 Last Admin: 08/28/18 18:58 Dose: 40 meq Saccharomyces Boulardii (Florastor) 250 mg PO DAILY [facility] Vancomycin HCl (Vancomycin 50 Mg/Ml Soln) 125 mg PO ONETIME ONE Stop: 08/28/18 09:52 Last Admin: 08/28/18 09:59 Dose: 125 mg - Exam General: Alert, Oriented, Cooperative, No Acute Distress HEENT: Pupils Equal, Pupils Reactive, EOMI, Mucous Membr. Moist/[place] Neck: Supple, Trachea Midline Lungs: Clear to Auscultation, Normal Respiratory Effort Cardiovascular: Regular Rate, Regular Rhythm GI/Abdominal Exam: Normal Bowel Sounds, Soft, No Organomegaly, No Distention, No Mass, Pelvis Stable, Tender (very mild at the left lower quadrant). No: Guarding, Rigid, Rebound (Female) Exam: Deferred Back Exam: Normal Inspection, Decreased Range of Motion Extremities: Normal Inspection, Normal Range of Motion, Non-Tender, No Pedal Edema, Normal Capillary Refill Peripheral Pulses: 2+: Dorsalis Pedis (L), Dorsalis Pedis (R) Skin: Warm, Dry, Intact Neurological: No New Focal Deficit Psy/Mental Status: Alert, Normal Affect, Normal Mood - Problem List Review Problem List Initiated/Reviewed/Updated: Yes - My Orders Last 24 Hours: My Active Orders 08/28/18 13:48 Metoprolol Tartrate [Lopressor] 5 mg IVPUSH Q4H PRN hydrALAZINE [Apresoline] 20 mg IVPUSH Q4H PRN 08/28/18 13:49 Height and Weight [RC] 04 Intake and Output [RC] 04,16 Oxygen Therapy [RC] PRN Up ad Melony [RC] BID VTE/DVT Education [RC] DAILY Vital Signs [RC] Q4HR Consult to Case Management/Cloth Hand [CONS] Routine Consult to Spiritual Care [CONS] Routine Acetaminophen [Tylenol] 650 mg PO Q4H PRN Acetaminophen/HYDROcodone [[place] 325-5 MG] 1 tab PO Q4H PRN Albuterol/Ipratropium [DuoNeb 3.0-0.5 MG/3 ML] 3 ml NEB Q4H PRN HYDROmorphone [Dilaudid] 0.5 mg IVPUSH Q2H PRN Ondansetron [Zofran] 4 mg IV Q6H PRN Temazepam [Restoril] 7.5 mg PO BEDTIME PRN Sequential Compression Device [OM.PC] Per Unit Routine Resuscitation Status Routine 08/28/18 13:50 Antiembolic Devices [RC] BID RT Aerosol Therapy [RC] ASDIRECTED 08/28/18 14:00 Pharmacy to Dose - Magnesium R [Pharmacy to Dose - Magnesium Replacement] 0 dose .XX ASDIRECTED PRN Pharmacy to Dose - Potassium R [Pharmacy to Dose - Potassium Replacement] 0 dose .XX ASDIRECTED PRN Vancomycin [Vancomycin 50 MG/ML Soln] 250 mg PO QID 08/28/18 15:00 Saccharomyces Boulardii [Florastor] 250 mg PO TID 08/28/18 16:45 Sodium Chloride 0.9% [Normal Saline] 1,000 ml IV ASDIRECTED 08/28/18 18:22 Acetaminophen/Butalbital/Caff [Fioricet 325-50-40 MG] 1 tab PO Q6H PRN 08/28/18 21:00 Famotidine [Pepcid] 20 mg PO BID 08/28/18 21:05 LORazepam [Ativan] 0.5 mg PO BID PRN 08/28/18 21:21 Promethazine [Phenergan] 25 mg Sodium Chloride 0.9% [Normal Saline] 50 ml IV Q6H 08/28/18 21:30 Multivitamins,Therapeutic [Thera] 1 each PO DAILY PRN 08/28/18 Lunch Clear Liquid Diet [DIET] 08/29/18 06:00 Levothyroxine [Synthroid] 50 mcg PO ACBREAKFAST 08/29/18 09:00 Calcium Polycarbophil [Fibercon] 1,250 mg PO BID Metoprolol Succinate [Toprol XL] 50 mg PO DAILY Sucralfate [Carafate] 1 gm PO DAILY hydroCHLOROthiazide 12.5 mg PO DAILY 08/29/18 21:00 Rosuvastatin [Crestor] 20 mg PO BEDTIME 08/30/18 05:11 BASIC METABOLIC PANEL,BMP [CHEM] AM C-REACTIVE PROTEIN [CHEM] AM CBC WITH AUTO DIFF [HEME] AM MAGNESIUM [CHEM] AM 08/31/18 05:11 BASIC METABOLIC PANEL,BMP [CHEM] AM C-REACTIVE PROTEIN [CHEM] AM CBC WITH AUTO DIFF [HEME] AM MAGNESIUM [CHEM] AM 09/01/18 05:11 BASIC METABOLIC PANEL,BMP [CHEM] AM C-REACTIVE PROTEIN [CHEM] AM CBC WITH AUTO DIFF [HEME] AM MAGNESIUM [CHEM] AM - Plan Plan:: C. Diff Colitis, Improving - Recently treated for proctitis with Cipro and Flagyl - Denies having unusual diet or drinks - No recent travel out side the country - No reports of camping or hiking out - Colonoscopy/EGD 5 years ago with polypectomy; she is due in 5 years - Afebrile w/ resolved leukocytosis; CRP now 9.1 - Watery diarrhea and reduced appetite; had 7 since last night - C. diff positive on screening - Continue PO Vancomycin Q6H plus oral probiotics and OTC Kefir for adjunct Hypokalemia - K 3.3--> 3.4 - 2/2 GI Loss - Replete and monitor Chronic: Impaired Vision HTN HLD GERD/Hiatal Hernia Hx/o Diverticulosis with Diverticulitis Hypothyroidism Anxiety Plan: She looks much better clinically Routine AM Labs GI/DVT PPx: SCDs and H2B Advance diet to soft then to regular (non-fatty/greasy and non diary) as tolerated IVF for hydration SW/CM for d/c planning Encourage to ambulate as tolerated Code status: 1 With her permission, updated about her diagnosis, morning labs, treatment and discharge care plan
[2018-08-29] MEDS: Famotidine 20 MG Tab PO SCH ×2 (08:43→20:39)
[2018-08-29] MEDS: Calcium Polycarbophil 625 MG Tab PO SCH ×2 (08:44→20:39)
[2018-08-29] MEDS: Sucralfate 1 GM Tab PO SCH (08:44)
[2018-08-29] MEDS: Hydrochlorothiazide 12.5 MG Cap PO SCH (08:45)
[2018-08-29] MEDS: Metoprolol Succinate 50 MG Tab.ER PO SCH (08:46)
[2018-08-29] MEDS: Acetaminophen/Butalbital/Caffeine 325-50-40 MG Tab PO PRN ×2 (08:56→15:34)
[2018-08-29] MEDS: Ondansetron 4 MG/2 ML SDV IV PRN (08:58)
[2018-08-29] MEDS ORDERED: Saccharomyces Boulardii (Probiotic) 250 MG Cap PO SCH (09:00)
[2018-08-29] MEDS ORDERED: Magnesium Sulfate/Water 4 GM in Premix Bag 1 BAG IV ONE (09:00)
[2018-08-29] MEDS: Vancomycin 50 MG/ML Oral Solution Bottle Kit PO SCH ×4 (09:03→20:41)
[2018-08-29] MEDS: Saccharomyces Boulardii (Probiotic) 250 MG Cap PO SCH ×3 (10:00→20:38)
[2018-08-29] MEDS: Potassium Chloride 20 MEQ Tab.ER PO SCH ×2 (10:01→12:17)
[2018-08-29] MEDS ORDERED: Rosuvastatin 10 MG Tab PO SCH (21:00)
[2018-08-30] MEDS: Sodium Chloride 0.9% 1,000 ML IV SCH (00:20)
[2018-08-30] MEDS: Levothyroxine 50 MCG Tab PO SCH (06:16)
[2018-08-30] MEDS: Saccharomyces Boulardii (Probiotic) 250 MG Cap PO SCH ×2 (08:29→15:08)
[2018-08-30] MEDS: Famotidine 20 MG Tab PO SCH (08:30)
[2018-08-30] MEDS: Hydrochlorothiazide 12.5 MG Cap PO SCH (08:30)
[2018-08-30] MEDS: Acetaminophen/Butalbital/Caffeine 325-50-40 MG Tab PO PRN (08:30)
[2018-08-30] MEDS: Sucralfate 1 GM Tab PO SCH (08:30)
[2018-08-30] MEDS: Vancomycin 50 MG/ML Oral Solution Bottle Kit PO SCH ×3 (08:32→18:42)
[2018-08-30] MEDS: Calcium Polycarbophil 625 MG Tab PO SCH (08:32)
[2018-08-30] MEDS: Metoprolol Succinate 50 MG Tab.ER PO SCH (08:37)
--- NOTE | 2018-08-30 09:19 | PCM.PN ---
- General Info Date of Service: 08/30/18 Admission Dx/Problem (Free Text): Admission Diagnosis/Problem Admission Diagnosis/Problem Clostridium difficile diarrhea Subjective Update: Follow Up Functional Status: Reports: Pain Controlled, Tolerating Diet, Ambulating, Urinating. Denies: New Symptoms - Patient Data Vitals - Most Recent: Last Vital Signs Temp 36.4 C 08/30/18 07:27 Pulse 58 L 08/30/18 08:37 Resp 16 08/30/18 07:27 BP 114/58 L 08/30/18 08:37 Pulse Ox 97 08/30/18 07:27 Weight - Most Recent: 77.111 kg I&O - Last 24 Hours: Intake & Output 08/29/18 08/30/18 08/30/18 22:59 06:59 14:59 Intake Total 3136 2590 Output Total 2125 2100 Balance 1011 490 Lab Results Last 24 Hours: Laboratory Results - last 24 hr 08/30/18 08/30/18 Range/Units 06:17 06:17 WBC 4.78 (3.98-10.04) K/mm3 RBC 3.68 L (3.98-5.22) M/mm3 Hgb 11.1 L (11.2-15.7) gm/L Hct 33.3 L (34.1-44.9) % MCV 90.5 (79.4-94.8) fl MCH 30.2 (25.6-32.2) pg MCHC 33.3 (32.2-35.5) g/dl RDW Std Deviation 44.0 (36.4-46.3) fL Plt Count 172 L (182-369) K/mm3 MPV 10.6 (9.4-12.3) fl Neut % (Auto) 60.9 (34.0-71.1) % Lymph % (Auto) 25.3 (19.3-51.7) % [place] % (Auto) 10.7 (4.7-12.5) % Eos % (Auto) 2.7 (0.7-5.8) Baso % (Auto) 0.2 (0.1-1.2) % Neut # (Auto) 2.91 (1.56-6.13) K/mm3 Lymph # (Auto) 1.21 (1.18-3.74) K/mm3 [place] # (Auto) 0.51 H (0.24-0.36) K/mm3 Eos # (Auto) 0.13 (0.04-0.36) K/mm3 Baso # (Auto) 0.01 (0.01-0.08) K/mm3 Sodium 143 (136-145) mEq/L Potassium 4.1 (3.5-5.1) mEq/L Chloride 108 H (98-107) mEq/L Carbon Dioxide 28 (21-32) mEq/L Anion Gap 11.1 (5-15) BUN 6 L (7-18) mg/dL Creatinine 0.6 (0.55-1.02) mg/dL Est Cr Clr Drug Dosing 80.75 mL/min Estimated GFR (MDRD) > 60 (>60) mL/min BUN/Creatinine Ratio 10.0 L (14-18) Glucose 97 (80-115) mg/dL Calcium 8.3 L (8.5-10.1) mg/dL Magnesium 1.8 (1.8-2.4) mg/dl C-Reactive Protein 8.4 H* (<1.0) mg/dL Demetrio Results Last 24 Hours: Microbiology 08/28/18 07:30 Cryptosporidium/Giardia - Final Stool / Feces - Stool, Liquid 08/28/18 07:30 Stool Culture - Preliminary Stool / Feces Shiga Toxin I - Final NEGATIVE FOR SHIGA TOXIN 1 Shiga Toxin II - Final NEGATIVE FOR SHIGA TOXIN 2 Med Orders - Current: Current Medications Acetaminophen (Tylenol) 650 mg PO Q4H PRN PRN Reason: Pain (Mild 1-3)/fever Last Admin: 08/28/18 17:09 Dose: 650 mg Acetaminophen/Butalbital/Caffeine (Fioricet 325-50-40 Mg) 1 tab PO Q6H PRN PRN Reason: Headache Last Admin: 08/30/18 08:30 Dose: 1 tab Hydrocodone Bitart/Acetaminophen ([place] 325-5 Mg) 1 tab PO Q4H PRN PRN Reason: Pain (moderate 4-6) Albuterol/Ipratropium (Duoneb 3.0-0.5 Mg/3 Ml) 3 ml NEB Q4H PRN PRN Reason: Shortness Of Breath/wheezing Calcium Polycarbophil (Fibercon) 1,250 mg PO BID [facility] Last Admin: 08/30/18 08:32 Dose: 1,250 mg Famotidine (Pepcid) 20 mg PO BID [facility] Last Admin: 08/30/18 08:30 Dose: 20 mg Hydralazine HCl (Apresoline) 20 mg IVPUSH Q4H PRN PRN Reason: Hypertension Hydrochlorothiazide (Hydrochlorothiazide) 12.5 mg PO DAILY [facility] Last Admin: 08/30/18 08:30 Dose: 12.5 mg Hydromorphone HCl (Dilaudid) 0.5 mg IVPUSH Q2H PRN PRN Reason: Pain (severe 7-10) Sodium Chloride (Normal Saline) 1,000 mls @ 100 mls/hr IV ASDIRECTED [facility] Last Admin: 08/30/18 00:20 Dose: 100 mls/hr Promethazine HCl 25 mg/ Sodium (Chloride) 51 mls @ 100 mls/hr IV Q6H PRN PRN Reason: Nausea/Vomiting Last Admin: 08/28/18 22:51 Dose: 100 mls/hr Levothyroxine Sodium (Synthroid) 50 mcg PO ACBREAKFAST [facility] Last Admin: 08/30/18 06:16 Dose: 50 mcg Lorazepam (Ativan) 0.5 mg PO BID PRN PRN Reason: Anxiety Last Admin: 08/29/18 20:57 Dose: 0.5 mg Magnesium Sulfate (Pharmacy To Dose - Magnesium Replacement) 0 dose .XX ASDIRECTED PRN PRN Reason: RX TO WATCH MAG Metoprolol Succinate (Toprol Xl) 50 mg PO DAILY [facility] Last Admin: 08/30/18 08:37 Dose: Not Given Metoprolol Tartrate (Lopressor) 5 mg IVPUSH Q4H PRN PRN Reason: Tachycardia Miscellaneous Information (Remove Patch) 1 ea TRDERM Q72H [facility] Multivitamins (Thera) 1 each PO DAILY PRN PRN Reason: VITAMIN Ondansetron HCl (Zofran) 4 mg IV Q6H PRN PRN Reason: Nausea/Vomiting Last Admin: 08/29/18 08:58 Dose: 4 mg Potassium Chloride (Pharmacy To Dose - Potassium Replacement) 0 dose .XX ASDIRECTED PRN PRN Reason: RX TO WATCH K Rosuvastatin Calcium (Crestor) 20 mg PO BEDTIME [facility] Last Admin: 08/29/18 20:38 Dose: 20 mg Saccharomyces Boulardii (Florastor) 250 mg PO TID [facility] Last Admin: 08/30/18 08:29 Dose: 250 mg Scopolamine (Transderm-Scop) 1.5 mg TRDERM Q72H PRN PRN Reason: Nausea/Vomiting Last Admin: 08/28/18 14:57 Dose: 1.5 mg Sucralfate (Carafate) 1 gm PO DAILY [facility] Last Admin: 08/30/18 08:30 Dose: 1 gm Temazepam (Restoril) 7.5 mg PO BEDTIME PRN PRN Reason: Sleep Vancomycin HCl (Vancomycin 50 Mg/Ml Soln) 125 mg PO QID [facility] Last Admin: 08/30/18 08:32 Dose: 2.5 ml Discontinued Medications Diatrizoate Meglum/Diatrizoate Sod (Gastrografin 37%) 90 ml PO ONETIME ONE Stop: 08/28/18 06:41 Last Admin: 08/28/18 07:16 Dose: 90 ml Hydromorphone HCl (Dilaudid) 0.5 mg IVPUSH ONETIME STA Stop: 08/28/18 05:33 Last Admin: 08/28/18 05:45 Dose: 0.5 mg Hydromorphone HCl (Dilaudid) 0.5 mg IVPUSH ONETIME ONE Stop: 08/28/18 08:52 Last Admin: 08/28/18 09:00 Dose: 0.5 mg Hydromorphone HCl (Dilaudid) 0.5 mg IVPUSH ONETIME ONE Stop: 08/28/18 13:01 Last Admin: 08/28/18 13:07 Dose: 0.5 mg Sodium Chloride (Normal Saline) 1,000 mls @ 100 mls/hr IV ASDIRECTED [facility] Last Admin: 08/28/18 05:43 Dose: 100 mls/hr Sodium Chloride (Normal Saline) 1,000 mls @ 150 mls/hr IV ASDIRECTED [facility] Last Admin: 08/28/18 09:55 Dose: 150 mls/hr Magnesium Sulfate 4 gm/ Premix 50 mls @ 12.5 mls/hr IV ONETIME ONE Stop: 08/29/18 12:59 Last Admin: 08/29/18 09:58 Dose: 12.5 mls/hr Iopamidol (Isovue-370 (76%)) 100 ml IV ONETIME ONE Stop: 08/28/18 06:41 Last Admin: 08/28/18 07:16 Dose: 100 ml Metoclopramide HCl (Reglan) 5 mg IVPUSH Q6H PRN PRN Reason: Nausea Non-Formulary Medication (Fluocinonide) 15 gm TOP DAILY PRN PRN Reason: Rash Ondansetron HCl (Zofran) 4 mg IVPUSH ONETIME ONE Stop: 08/28/18 05:33 Last Admin: 08/28/18 05:44 Dose: 4 mg Ondansetron HCl (Zofran) 4 mg IVPUSH ONETIME ONE Stop: 08/28/18 08:53 Last Admin: 08/28/18 09:00 Dose: 4 mg Ondansetron HCl (Zofran) 4 mg IVPUSH Q6H PRN PRN Reason: Nausea/Vomiting Last Admin: 08/28/18 13:07 Dose: 4 mg Potassium Chloride (Klor-Con M20) 40 meq PO Q4H [facility] Stop: 08/28/18 18:31 Last Admin: 08/28/18 18:58 Dose: 40 meq Potassium Chloride (Klor-Con M20) 40 meq PO Q4H [facility] Stop: 08/29/18 13:01 Last Admin: 08/29/18 12:17 Dose: 40 meq Saccharomyces Boulardii (Florastor) 250 mg PO DAILY [facility] Vancomycin HCl (Vancomycin 50 Mg/Ml Soln) 125 mg PO ONETIME ONE Stop: 08/28/18 09:52 Last Admin: 08/28/18 09:59 Dose: 125 mg Vancomycin HCl (Vancomycin 50 Mg/Ml Soln) 250 mg PO QID [facility] Last Admin: 08/29/18 09:03 Dose: 250 mg - My Orders Last 24 Hours: My Active Orders 08/29/18 09:00 Calcium Polycarbophil [Fibercon] 1,250 mg PO BID Metoprolol Succinate [Toprol XL] 50 mg PO DAILY Sucralfate [Carafate] 1 gm PO DAILY hydroCHLOROthiazide 12.5 mg PO DAILY 08/29/18 11:28 Vancomycin [Vancomycin 50 MG/ML Soln] 125 mg PO QID 08/29/18 21:00 Rosuvastatin [Crestor] 20 mg PO BEDTIME 08/29/18 Lunch Soft Diet [DIET] 08/31/18 05:11 BASIC METABOLIC PANEL,BMP [CHEM] AM C-REACTIVE PROTEIN [CHEM] AM CBC WITH AUTO DIFF [HEME] AM MAGNESIUM [CHEM] AM 08/31/18 15:00 Remove Patch 1 ea KRISTEN Q72H 09/01/18 05:11 BASIC METABOLIC PANEL,BMP [CHEM] AM C-REACTIVE PROTEIN [CHEM] AM CBC WITH AUTO DIFF [HEME] AM MAGNESIUM [CHEM] AM - Plan Plan:: C. Diff Colitis - Recently treated for proctitis with Cipro and Flagyl - Denies having unusual diet or drinks - No recent travel out side the country - No reports of camping or hiking out - Colonoscopy/EGD 5 years ago with polypectomy; she is due in 5 years - Afebrile w/ mild leukocytosis (WBC of 10.30); CRP is pending - Watery diarrhea and reduced appetite - C. diff positive on screening - Start oral Vancomycin Q6H plus probiotics - Okayed for patient to have Kefir for additional probiotic supplement Hypokalemia - K 3.3 - 2/2 GI Loss - Replete and monitor Chronic: Impaired Vision HTN HLD GERD/Hiatal Hernia Hx/o Diverticulosis with Diverticulitis Hypothyroidism Anxiety Plan: Admit to [facility] Resume Home Meds except PPI (known to cause CDAD) Routine AM Labs GI/DVT PPx: SCDs and H2B Clear liquid diet IVF for hydration SW/CM for d/c planning Code status: 1
--- NOTE | 2018-08-30 18:52 | PCM.DCSUM1 ---
Discharge Summary - Hospital Course Diagnosis: Stroke: No Modified Ana Laura Scale: No Symptoms at All Modified Ana Laura Scale Score: 0 - Discharge Data Discharge Date: 08/30/18 Discharge Disposition: Home, Self-Care 01 Condition: Good - Discharge Diagnosis/Problem(s) (1) Clostridium difficile colitis SNOMED Code(s): 956954348 ICD Code: A04.72 - ENTEROCOLITIS D/T CLOSTRIDIUM DIFFICILE, NOT SPCF RECUR Status: Acute Current Visit: Yes (2) Hypokalemia SNOMED Code(s): 53315154 ICD Code: E87.6 - HYPOKALEMIA Status: Resolved Current Visit: Yes (3) Hypomagnesemia SNOMED Code(s): 043729477 ICD Code: E83.42 - HYPOMAGNESEMIA Status: Resolved Current Visit: Yes - Patient Summary/Data Consults: Consultations 08/28/18 13:49 Consult to Case Management/Activity Therapy Teacher [CONS] Routine Consult to Spiritual Care [CONS] Routine - Patient Instructions Diet: Usual Diet as Tolerated Activity: As Tolerated Driving: Do Not Drive Showering/Bathing: May Shower Notify Provider of: Fever, Increased Pain, Swelling and Redness, Drainage, Nausea and/or Vomiting Other/Special Instructions: - Please take all new medications as directed. - Resume all home medications and continue routine home activities as tolerated. - Continue Kefer until you complete antibiotic treatment. - Follow-up with primary care provider in 2 weeks after discharge. - Call or follow up with your PCP for any questions or concerns after discharge. - Come back or seek immediate care should your symptoms persist or get worse - Discharge Plan *PRESCRIPTION DRUG MONITORING PROGRAM REVIEWED*: Not Applicable *COPY OF PRESCRIPTION DRUG MONITORING REPORT IN PATIENT JOSE RAMON: Not Applicable Prescriptions/Med Rec: Saccharomyces Boulardii [Florastor] 250 mg PO QID #32 capsule Vancomycin [Vancomycin 50 MG/ML Soln] 125 mg PO QID #32 bottle Home Medications: Home Meds Calcium Polycarbophil [Fibercon] 2 tab PO BID 12/25/17 [History] LORazepam [Ativan] 0.5 mg PO BID PRN 12/25/17 [History] Levothyroxine [Synthroid] 50 mcg PO ACBREAKFAST 12/25/17 [History] Multivitamin with Minerals [Multiple Vitamin] 1 tab PO DAILY PRN 12/25/17 [ History] Pantoprazole Sodium [Protonix] 40 mg PO BID 12/25/17 [History] Rosuvastatin [Crestor] 20 mg PO BEDTIME 12/25/17 [History] Sucralfate [Carafate] 1 gm PO DAILY 12/25/17 [History] Fluocinonide [Lidex 0.05% Crm] 15 gm TOP DAILY PRN 08/28/18 [History] Metoprolol Succinate [Toprol XL 50mg] 50 mg PO DAILY 08/28/18 [History] Omeprazole 20 mg PO BIDAC 08/28/18 [History] hydroCHLOROthiazide [Hydrochlorothiazide] 12.5 mg PO DAILY 08/28/18 [History] Saccharomyces Boulardii [Florastor] 250 mg PO QID #32 capsule 08/30/18 [Rx] Vancomycin [Vancomycin 50 MG/ML Soln] 125 mg PO QID #32 bottle 08/30/18 [Rx] Oxygen Therapy Mode: Room Air Patient Handouts: Clostridium Difficile Infection, [id number], Clostridium Difficile Infection Referrals: Lisbeth Juan MD [Primary Care Provider] - (Please schedule a follow up appointment with your primary care provider within 7 to 10 days of discharge. ) - General Info Date of Service: 08/30/18 Admission Dx/Problem (Free Text: C. Diff Colitis Subjective Update: Follow Up Functional Status: Reports: Pain Controlled, Tolerating Diet, Ambulating, Urinating. Denies: Incentive Spirometry - Patient Data Vitals - Most Recent: Last Vital Signs Temp 36.8 C 08/30/18 16:57 Pulse 55 L 08/30/18 16:57 Resp 16 08/30/18 16:57 BP 130/46 L 08/30/18 16:57 Pulse Ox 100 08/30/18 16:57 Weight - Most Recent: 77.111 kg I&O - Last 24 hours: Intake & Output 08/30/18 08/30/18 08/30/18 06:59 14:59 22:59 Intake Total 2590 480 1199 Output Total 2100 2200 Balance 490 480 -1001 Lab Results - Last 24 hrs: Laboratory Results - last 24 hr 08/30/18 08/30/18 Range/Units 06:17 06:17 WBC 4.78 (3.98-10.04) K/mm3 RBC 3.68 L (3.98-5.22) M/mm3 Hgb 11.1 L (11.2-15.7) gm/L Hct 33.3 L (34.1-44.9) % MCV 90.5 (79.4-94.8) fl MCH 30.2 (25.6-32.2) pg MCHC 33.3 (32.2-35.5) g/dl RDW Std Deviation 44.0 (36.4-46.3) fL Plt Count 172 L (182-369) K/mm3 MPV 10.6 (9.4-12.3) fl Neut % (Auto) 60.9 (34.0-71.1) % Lymph % (Auto) 25.3 (19.3-51.7) % [place] % (Auto) 10.7 (4.7-12.5) % Eos % (Auto) 2.7 (0.7-5.8) Baso % (Auto) 0.2 (0.1-1.2) % Neut # (Auto) 2.91 (1.56-6.13) K/mm3 Lymph # (Auto) 1.21 (1.18-3.74) K/mm3 [place] # (Auto) 0.51 H (0.24-0.36) K/mm3 Eos # (Auto) 0.13 (0.04-0.36) K/mm3 Baso # (Auto) 0.01 (0.01-0.08) K/mm3 Sodium 143 (136-145) mEq/L Potassium 4.1 (3.5-5.1) mEq/L Chloride 108 H (98-107) mEq/L Carbon Dioxide 28 (21-32) mEq/L Anion Gap 11.1 (5-15) BUN 6 L (7-18) mg/dL Creatinine 0.6 (0.55-1.02) mg/dL Est Cr Clr Drug Dosing 80.75 mL/min Estimated GFR (MDRD) > 60 (>60) mL/min BUN/Creatinine Ratio 10.0 L (14-18) Glucose 97 (80-115) mg/dL Calcium 8.3 L (8.5-10.1) mg/dL Magnesium 1.8 (1.8-2.4) mg/dl C-Reactive Protein 8.4 H* (<1.0) mg/dL OFELIA Results - Last 24 hrs: Microbiology 08/28/18 07:30 Stool Culture - Preliminary Stool / Feces Shiga Toxin I - Final NEGATIVE FOR SHIGA TOXIN 1 Shiga Toxin II - Final NEGATIVE FOR SHIGA TOXIN 2 Med Orders - Current: Current Medications Acetaminophen (Tylenol) 650 mg PO Q4H PRN PRN Reason: Pain (Mild 1-3)/fever Last Admin: 08/28/18 17:09 Dose: 650 mg Acetaminophen/Butalbital/Caffeine (Fioricet 325-50-40 Mg) 1 tab PO Q6H PRN PRN Reason: Headache Last Admin: 08/30/18 08:30 Dose: 1 tab Hydrocodone Bitart/Acetaminophen ([place] 325-5 Mg) 1 tab PO Q4H PRN PRN Reason: Pain (moderate 4-6) Albuterol/Ipratropium (Duoneb 3.0-0.5 Mg/3 Ml) 3 ml NEB Q4H PRN PRN Reason: Shortness Of Breath/wheezing Calcium Polycarbophil (Fibercon) 1,250 mg PO BID [facility] Last Admin: 08/30/18 08:32 Dose: 1,250 mg Famotidine (Pepcid) 20 mg PO BID [facility] Last Admin: 08/30/18 08:30 Dose: 20 mg Hydralazine HCl (Apresoline) 20 mg IVPUSH Q4H PRN PRN Reason: Hypertension Hydrochlorothiazide (Hydrochlorothiazide) 12.5 mg PO DAILY [facility] Last Admin: 08/30/18 08:30 Dose: 12.5 mg Hydromorphone HCl (Dilaudid) 0.5 mg IVPUSH Q2H PRN PRN Reason: Pain (severe 7-10) Sodium Chloride (Normal Saline) 1,000 mls @ 100 mls/hr IV ASDIRECTED [facility] Last Admin: 08/30/18 00:20 Dose: 100 mls/hr Promethazine HCl 25 mg/ Sodium (Chloride) 51 mls @ 100 mls/hr IV Q6H PRN PRN Reason: Nausea/Vomiting Last Admin: 08/28/18 22:51 Dose: 100 mls/hr Levothyroxine Sodium (Synthroid) 50 mcg PO ACBREAKFAST [facility] Last Admin: 08/30/18 06:16 Dose: 50 mcg Lorazepam (Ativan) 0.5 mg PO BID PRN PRN Reason: Anxiety Last Admin: 08/29/18 20:57 Dose: 0.5 mg Magnesium Sulfate (Pharmacy To Dose - Magnesium Replacement) 0 dose .XX ASDIRECTED PRN PRN Reason: RX TO WATCH MAG Metoprolol Succinate (Toprol Xl) 50 mg PO DAILY [facility] Last Admin: 08/30/18 08:37 Dose: Not Given Metoprolol Tartrate (Lopressor) 5 mg IVPUSH Q4H PRN PRN Reason: Tachycardia Miscellaneous Information (Remove Patch) 1 ea TRDERM Q72H [facility] Multivitamins (Thera) 1 each PO DAILY PRN PRN Reason: VITAMIN Ondansetron HCl (Zofran) 4 mg IV Q6H PRN PRN Reason: Nausea/Vomiting Last Admin: 08/29/18 08:58 Dose: 4 mg Potassium Chloride (Pharmacy To Dose - Potassium Replacement) 0 dose .XX ASDIRECTED PRN PRN Reason: RX TO WATCH K Rosuvastatin Calcium (Crestor) 20 mg PO BEDTIME [facility] Last Admin: 08/29/18 20:38 Dose: 20 mg Saccharomyces Boulardii (Florastor) 250 mg PO TID [facility] Last Admin: 08/30/18 15:08 Dose: 250 mg Scopolamine (Transderm-Scop) 1.5 mg TRDERM Q72H PRN PRN Reason: Nausea/Vomiting Last Admin: 08/28/18 14:57 Dose: 1.5 mg Sucralfate (Carafate) 1 gm PO DAILY [facility] Last Admin: 08/30/18 08:30 Dose: 1 gm Temazepam (Restoril) 7.5 mg PO BEDTIME PRN PRN Reason: Sleep Vancomycin HCl (Vancomycin 50 Mg/Ml Soln) 125 mg PO QID [facility] Last Admin: 08/30/18 18:42 Dose: 2.5 ml Discontinued Medications Diatrizoate Meglum/Diatrizoate Sod (Gastrografin 37%) 90 ml PO ONETIME ONE Stop: 08/28/18 06:41 Last Admin: 08/28/18 07:16 Dose: 90 ml Hydromorphone HCl (Dilaudid) 0.5 mg IVPUSH ONETIME STA Stop: 08/28/18 05:33 Last Admin: 08/28/18 05:45 Dose: 0.5 mg Hydromorphone HCl (Dilaudid) 0.5 mg IVPUSH ONETIME ONE Stop: 08/28/18 08:52 Last Admin: 08/28/18 09:00 Dose: 0.5 mg Hydromorphone HCl (Dilaudid) 0.5 mg IVPUSH ONETIME ONE Stop: 08/28/18 13:01 Last Admin: 08/28/18 13:07 Dose: 0.5 mg Sodium Chloride (Normal Saline) 1,000 mls @ 100 mls/hr IV ASDIRECTED [facility] Last Admin: 08/28/18 05:43 Dose: 100 mls/hr Sodium Chloride (Normal Saline) 1,000 mls @ 150 mls/hr IV ASDIRECTED [facility] Last Admin: 08/28/18 09:55 Dose: 150 mls/hr Magnesium Sulfate 4 gm/ Premix 50 mls @ 12.5 mls/hr IV ONETIME ONE Stop: 08/29/18 12:59 Last Admin: 08/29/18 09:58 Dose: 12.5 mls/hr Iopamidol (Isovue-370 (76%)) 100 ml IV ONETIME ONE Stop: 08/28/18 06:41 Last Admin: 08/28/18 07:16 Dose: 100 ml Metoclopramide HCl (Reglan) 5 mg IVPUSH Q6H PRN PRN Reason: Nausea Non-Formulary Medication (Fluocinonide) 15 gm TOP DAILY PRN PRN Reason: Rash Ondansetron HCl (Zofran) 4 mg IVPUSH ONETIME ONE Stop: 08/28/18 05:33 Last Admin: 08/28/18 05:44 Dose: 4 mg Ondansetron HCl (Zofran) 4 mg IVPUSH ONETIME ONE Stop: 08/28/18 08:53 Last Admin: 08/28/18 09:00 Dose: 4 mg Ondansetron HCl (Zofran) 4 mg IVPUSH Q6H PRN PRN Reason: Nausea/Vomiting Last Admin: 08/28/18 13:07 Dose: 4 mg Potassium Chloride (Klor-Con M20) 40 meq PO Q4H [facility] Stop: 08/28/18 18:31 Last Admin: 08/28/18 18:58 Dose: 40 meq Potassium Chloride (Klor-Con M20) 40 meq PO Q4H [facility] Stop: 08/29/18 13:01 Last Admin: 08/29/18 12:17 Dose: 40 meq Saccharomyces Boulardii (Florastor) 250 mg PO DAILY [facility] Vancomycin HCl (Vancomycin 50 Mg/Ml Soln) 125 mg PO ONETIME ONE Stop: 08/28/18 09:52 Last Admin: 08/28/18 09:59 Dose: 125 mg Vancomycin HCl (Vancomycin 50 Mg/Ml Soln) 250 mg PO QID [facility] Last Admin: 08/29/18 09:03 Dose: 250 mg
== END 2018-08-30 19:20 | disposition home or self-care (01) | DRG 373 ==
LOC: JD.ED 04:52 → JD.MS 10:23
PROVIDERS: ADMIT Internal Medicine; ATTEND Internal Medicine
DX: A04.72 Enterocolitis due to Clostridium difficile, not specified as recurrent (principal); E78.00 Pure hypercholesterolemia, unspecified; I10 Essential (primary) hypertension; F41.9 Anxiety disorder, unspecified; E78.5 Hyperlipidemia, unspecified; E87.6 Hypokalemia; E83.42 Hypomagnesemia; K44.9 Diaphragmatic hernia without obstruction or gangrene; K21.9 Gastro-esophageal reflux disease without esophagitis; K29.70 Gastritis, unspecified, without bleeding; E03.9 Hypothyroidism, unspecified; H54.7 Unspecified visual loss; Z90.710 Acquired absence of both cervix and uterus; Z79.899 Other long term (current) drug therapy; R10.9 Unspecified abdominal pain; R10.84 Generalized abdominal pain; Z79.890 Hormone replacement therapy; Z86.010 Personal history of colon polyps; Z90.49 Acquired absence of other specified parts of digestive tract
CPT/HCPCS: 36415; 74177; 80053; 81001; 83690; 85007; 85027; 87046; 87328; 87329; 87493 ×2; 89055; 96361; 96374; 96375; 96376; 99285; A9270; J1170 ×2; J2405 ×2; J7040 ×2; Q9963; 80048; 83735; 85025; 86140; J2550; J3475; J7050

== ENCOUNTER 2019-01-25 06:24 | Emergency (ER) | payer MEDICARE, BC ==
[2019-01-25] MEDS ORDERED: Ondansetron 4 MG/2 ML SDV IVPUSH ONE (06:54)
[2019-01-25] MEDS ORDERED: Sodium Chloride 0.9% 1,000 ML IV SCH (07:00)
[2019-01-25] MEDS ORDERED: HYDROmorphone 0.5 MG/0.5 ML Syringe IVPUSH ONE (08:34)
[2019-01-25] MEDS ORDERED: Lactated Ringers 1,000 ML IV ONE (08:34)
[2019-01-25] MEDS ORDERED: Metoclopramide 10 MG/2 ML SDV IVPUSH ONE (08:34)
--- NOTE | 2019-01-25 09:40 | EDM.PDOC ---
ED HPI GENERAL MEDICAL PROBLEM - General Chief Complaint: Cardiovascular Problem Stated Complaint: HEART PALPITATIONS/SWEATING /VOMITING Time Seen by Provider: 01/25/19 07:07 Source of Information: Reports: Patient, RN Notes Reviewed - History of Present Illness INITIAL COMMENTS - FREE TEXT/NARRATIVE: 68-year-old female comes in with upper abdominal pain, nausea, vomiting. She's had some discomfort for the last few days but this really started more severely during the night and early this morning. She has vomited several times. She does have some palpitations, feels weak and dizzy. Mild pain left lower anterior chest without radiation. His been having dental problems recently, was just recently started on Pen-Vee K and did have an abscess drained right upper jaw yesterday and also earlier this week. Her dentist which are from Pen-Vee K this efflux yesterday because the infection was not rapidly clearing. She also has been taking a lot of Aleve for the dental discomfort and also been taking 2 hydrocodone about every 4-6 hours for several days. She is not have history of hypertension diabetes or coronary artery disease. She has had C. difficile colitis in the past but is not currently having diarrhea. Epigastric Pain Score (Numeric/FACES): 4 - Related Data Allergies Allergy/AdvReac Type Severity Reaction Status Date / Time No Known Allergies Allergy Verified 01/25/19 06:36 Home Meds: Home Meds Calcium Polycarbophil [Fibercon] 1,250 mg PO BID 12/25/17 [History] LORazepam [Ativan] 0.5 mg PO BID PRN 12/25/17 [History] Levothyroxine [Synthroid] 50 mcg PO ACBREAKFAST 12/25/17 [History] Multivitamin with Minerals [Multiple Vitamin] 1 tab PO DAILY PRN 12/25/17 [ History] Rosuvastatin [Crestor] 20 mg PO BEDTIME 12/25/17 [History] Fluocinonide [Lidex 0.05% Crm] 15 gm TOP DAILY PRN 08/28/18 [History] Metoprolol Succinate [Toprol XL 50mg] 50 mg PO DAILY 08/28/18 [History] Omeprazole 20 mg PO BIDAC 08/28/18 [History] hydroCHLOROthiazide [Hydrochlorothiazide] 12.5 mg PO DAILY 08/28/18 [History] Saccharomyces Boulardii [Florastor] 250 mg PO QID #32 capsule 08/30/18 [Rx] Cephalexin [Keflex] 500 mg PO QID 01/25/19 [History] Ondansetron [Zofran ODT] 4 mg PO Q8HR PRN #10 tab.dis 01/25/19 [Rx] Past Medical History HEENT History: Reports: Impaired Vision Cardiovascular History: Reports: High Cholesterol, Hypertension Gastrointestinal History: Reports: Colon Polyp, Diverticulosis, Gastritis, GERD , Hiatal Hernia Other Gastrointestinal History: esophagitis [employer] History: Reports: , Spontaneous Neurological History: Reports: Migraines Psychiatric History: Reports: Anxiety Endocrine/Metabolic History: Reports: Hypothyroidism Hematologic History: Reports: Anemia Other Dermatologic History: rashes - Infectious Disease History Infectious Disease History: Reports: C-Difficile, Chicken Pox, Measles, Mumps - Past Surgical History HEENT Surgical History: Reports: Oral Surgery GI Surgical History: Reports: Cholecystectomy, Colonoscopy, EGD Female Surgical History: Reports: D&C, Hysterectomy, Salpingo-Oophorectomy, Tubal Ligation Social & Family History - Family History Family Medical History: Noncontributory - Tobacco Use Smoking Status *Q: Never Smoker - Caffeine Use Caffeine Use: Reports: None - Recreational Drug Use Recreational Drug Use: No - Living Situation & Occupation Living situation: Reports: , with Spouse Occupation: Retired ED ROS GENERAL - Review of Systems Review Of Systems: See Below Constitutional: Reports: Chills. Denies: Fever HEENT: Reports: Dental Pain (For many days) Respiratory: Reports: Shortness of Breath (Gone), Cough (Occasional). Denies: Pleuritic Chest Pain Cardiovascular: Reports: Chest Pain (Mild lower anterior mid chest without radiation) GI/Abdominal: Reports: Abdominal Pain (Mid and upper mid abdomen), Nausea, Vomiting. Denies: Diarrhea Musculoskeletal: Denies: Shoulder Pain, Arm Pain, Back Pain Neurological: Reports: Dizziness ED EXAM, GENERAL - Physical Exam Exam: See Below General Appearance: Alert, Moderate Distress Throat/Mouth: Other (Inflammation lateral to right upper posterior gum, no active drainage) Neck: Supple. No: Lymphadenopathy (L), Lymphadenopathy (R) Respiratory/Chest: No Respiratory Distress, Lungs Clear, Normal Breath Sounds Cardiovascular: Regular Rate, Rhythm GI/Abdominal: Soft, Non-Tender Extremities: Normal Inspection, Normal Range of Motion Neurological: Alert, Oriented, No Motor/Sensory Deficits Skin Exam: Warm, Dry, Normal Color, No Rash Course - Vital Signs Last Recorded V/S: Last Vital Signs Temp 98.0 F 01/25/19 09:20 Pulse 55 L 01/25/19 09:20 Resp 12 01/25/19 09:20 BP 115/56 L 01/25/19 09:20 Pulse Ox 97 01/25/19 09:20 - Orders/Labs/Meds Orders: Active Orders 24 hr Category Date Time Status EKG Documentation Completion [RC] STAT Care 01/25/19 06:26 Active Labs: Laboratory Tests 01/25/19 01/25/19 01/25/19 Range/Units 06:40 06:40 06:40 WBC 10.38 H (3.98-10.04) K/mm3 RBC 4.80 (3.98-5.22) M/mm3 Hgb 14.2 D (11.2-15.7) gm/dl Hct 42.2 (34.1-44.9) % MCV 87.9 (79.4-94.8) fl MCH 29.6 (25.6-32.2) pg MCHC 33.6 (32.2-35.5) g/dl RDW Std Deviation 40.5 (36.4-46.3) fL Plt Count 208 (182-369) K/mm3 MPV 10.7 (9.4-12.3) fl Neutrophils % (Manual) 85 H (40-60) % Band Neutrophils % 0 (0-10) % Lymphocytes % (Manual) 10 L (20-40) % Atypical Lymphs % 0 % Monocytes % (Manual) 5 (2-10) % Eosinophils % (Manual) 0 L (0.7-5.8) % Basophils % (Manual) 0 L (0.1-1.2) Platelet Estimate Adequate Plt Morphology Comment Normal RBC Morph Comment Normal Sodium 139 (136-145) mEq/L Potassium 3.6 (3.5-5.1) mEq/L Chloride 100 (98-107) mEq/L Carbon Dioxide 26 (21-32) mEq/L Anion Gap 16.6 H (5-15) BUN 15 (7-18) mg/dL Creatinine 0.8 (0.55-1.02) mg/dL Est Cr Clr Drug Dosing 60.56 mL/min Estimated GFR (MDRD) > 60 (>60) mL/min BUN/Creatinine Ratio 18.8 H (14-18) Glucose 135 H (80-115) mg/dL Calcium 9.7 (8.5-10.1) mg/dL Magnesium 1.6 L (1.8-2.4) mg/dl Total Bilirubin 1.6 H (0.2-1.0) mg/dL GGT 47 (5-55) U/L AST 41 H (15-37) U/L ALT 69 H (14-59) U/L Alkaline Phosphatase 86 (46-116) U/L Troponin I < 0.017 (0.00-0.056) ng/mL Total Protein 8.0 (6.4-8.2) g/dl Albumin 3.9 (3.4-5.0) g/dl Globulin 4.1 gm/dL Albumin/Globulin Ratio 1.0 (1-2) Lipase 80 (73-393) U/L Meds: Medications Discontinued Medications Generic Name Dose Route Start Last Admin Trade Name Freq PRN Reason Stop Dose Admin Hydromorphone HCl 0.5 mg 01/25/19 08:34 01/25/19 08:46 Dilaudid IVPUSH 01/25/19 08:35 0.5 mg ONETIME ONE Administration Sodium Chloride 1,000 mls @ 150 mls/hr 01/25/19 07:00 01/25/19 07:00 Normal Saline IV 150 mls/hr ASDIRECTED PATY Administration Lactated Ringer's 1,000 mls @ 999 mls/hr 01/25/19 08:34 01/25/19 08:52 Ringers, Lactated IV 01/25/19 09:34 999 mls/hr .BOLUS ONE Administration Metoclopramide HCl 5 mg 01/25/19 08:34 01/25/19 08:44 Reglan IVPUSH 01/25/19 08:35 5 mg ONETIME ONE Administration Ondansetron HCl 4 mg 01/25/19 06:54 01/25/19 07:00 Zofran IVPUSH 01/25/19 06:55 4 mg ONETIME ONE Administration - Re-Assessments/Exams Free Text/Narrative Re-Assessment/Exam: 01/25/19 14:15 AST ALT and bilirubin all came back very mildly elevated so did check lipase and GGT which did come back normal. She did feel much better after IV fluid, IV Zofran, Reglan and Dilaudid. The Keflex is not likely to work well for her not giving the coverage needed for a dental, intraoral infection so have discussed the need to stop the Keflex and go back to the Pen-Vee K previously prescribed. Also talked to her about the Aleve and hydrocodone probably causing a lot of her GI distress. discharge instructions as documented. Departure - Departure Time of Disposition: 09:35 Disposition: Home, Self-Care 01 Condition: Fair Clinical Impression: Dental infection, Abdominal pain, Vomiting, Palpitations Prescriptions: Ondansetron [Zofran ODT] 4 mg PO Q8HR PRN #10 tab.dis PRN Reason: Nausea/Vomiting Instructions: Abdominal Pain, Adult Referrals: Lisbeth Juan MD [Primary Care Provider] - Forms: ED Department Discharge Additional Instructions: Clear liquids until this afternoon and then very careful bland diet as tolerated. Stop the Keflex and go back to the Pen-Vee K 500 mg 4 times daily as previously prescribed. Continue omeprazole as previously prescribed. Zofran every 6-8 hours if needed for further nausea or vomiting. Try stop the Aleve if possible as that is likely upsetting her stomach. Try reduce the the hydrocodone , consider taking 500 mg Tylenol with a half tab 1 tab hydrocodone every 6 hours as needed and that will be a lot easier on her stomach. Follow-up with your dentist next available appointment. Return to ED as needed if symptoms worsening in any way.
== END 2019-01-25 09:48 | disposition home or self-care (01) ==
LOC: JD.ED 06:24
DX: R10.10 Upper abdominal pain, unspecified (principal); R11.2 Nausea with vomiting, unspecified; R00.2 Palpitations; K04.7 Periapical abscess without sinus; I10 Essential (primary) hypertension; K21.9 Gastro-esophageal reflux disease without esophagitis; E03.9 Hypothyroidism, unspecified; E78.00 Pure hypercholesterolemia, unspecified; F41.9 Anxiety disorder, unspecified; Z90.49 Acquired absence of other specified parts of digestive tract; Z90.710 Acquired absence of both cervix and uterus; Z98.51 Tubal ligation status; Z79.899 Other long term (current) drug therapy
CPT/HCPCS: 36415; 80053; 82977; 83690; 83735; 84484; 85007; 85027; 93005; 96361; 96374; 96375; 99285; J1170; J2405; J2765; J7040; J7120

== ENCOUNTER 2019-12-27 19:01 | Emergency (ER) | payer MEDICARE, BC ==
[2019-12-27] MEDS ORDERED: Sodium Chloride 0.9% 1,000 ML IV STA (19:31)
[2019-12-27] MEDS ORDERED: Ondansetron 4 MG/2 ML SDV IVPUSH ONE (19:31)
[2019-12-27] MEDS ORDERED: Sodium Chloride 0.9% 10 ML Syringe FLUSH PRN (19:31)
[2019-12-27] MEDS ORDERED: HYDROmorphone 0.5 MG/0.5 ML Syringe IVPUSH ONE ×2 (19:33→21:29)
--- NOTE | 2019-12-27 19:37 | EDM.PDOC ---
ED HPI GENERAL MEDICAL PROBLEM - General Chief Complaint: Gastrointestinal Problem Stated Complaint: DIVERTICULITIS Time Seen by Provider: 12/27/19 19:23 Source of Information: Reports: Patient History Limitations: Reports: No Limitations - History of Present Illness INITIAL COMMENTS - FREE TEXT/NARRATIVE: The patient presents with nausea and abdominal pain. This started today. She has a history of diverticulitis and she is worried she may have it again. She did have a colonoscopy about 2 weeks ago at [facility] in [place] and she has not felt well since. She had some mild abdominal pain and nausea. That is worse today. She had a fever of 100.1 the other day. She has no cough, congestion, runny nose, chest pain, shortness of breath, vomiting, diarrhea or dysuria. She still has an appendix but no gallbladder. Onset: Gradual Duration: Day(s): Location: Reports: Abdomen Quality: Reports: Ache Severity: Moderate Improves with: Reports: None Worsens with: Reports: None Associated Symptoms: Reports: Fever/Chills, Nausea/Vomiting. Denies: Chest Pain, Cough, Headaches, Shortness of Breath abd Pain Score (Numeric/FACES): 7 - Related Data Allergies Allergy/AdvReac Type Severity Reaction Status Date / Time No Known Allergies Allergy Verified 12/27/19 19:29 Home Meds: Home Meds LORazepam [Ativan] 0.5 mg PO BID PRN 12/25/17 [History] Levothyroxine [Synthroid] 50 mcg PO ACBREAKFAST 12/25/17 [History] Multivitamin with Minerals [Multiple Vitamin] 1 tab PO DAILY PRN 12/25/17 [History] Rosuvastatin [Crestor] 20 mg PO BEDTIME 12/25/17 [History] calcium polycarbophiL [Fibercon] 1,250 mg PO BID 12/25/17 [History] Fluocinonide [Lidex 0.05% Crm] 15 gm TOP DAILY PRN 08/28/18 [History] Metoprolol Succinate [Toprol XL 50mg] 50 mg PO DAILY 08/28/18 [History] Omeprazole 20 mg PO BIDAC 08/28/18 [History] hydroCHLOROthiazide [Hydrochlorothiazide] 12.5 mg PO DAILY 08/28/18 [History] Saccharomyces Boulardii [Florastor] 250 mg PO QID #32 capsule 08/30/18 [Rx] Amoxicillin/Clavulanate K [Augmentin 875-125 MG] 1 tab PO BID #20 tablet 12/27/19 [Rx] Hydrocodone/Acetaminophen [Hydrocodone-Acetamin 5-325 mg] 1 - 2 each PO Q6HR PRN #20 tablet 12/27/19 [Rx] Ondansetron [Zofran ODT] 4 mg PO Q6H PRN #20 tab.dis 12/27/19 [Rx] Past Medical History HEENT History: Reports: Impaired Vision Cardiovascular History: Reports: High Cholesterol, Hypertension Gastrointestinal History: Reports: Colon Polyp, Diverticulosis, Gastritis, GERD, Hiatal Hernia Other Gastrointestinal History: esophagitis 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: , Spontaneous Neurological History: Reports: Migraines Psychiatric History: Reports: Anxiety Endocrine/Metabolic History: Reports: Hypothyroidism Hematologic History: Reports: Anemia Other Dermatologic History: rashes - Infectious Disease History Infectious Disease History: Reports: C-Difficile, Chicken Pox, Measles, Mumps - Past Surgical History HEENT Surgical History: Reports: Oral Surgery GI Surgical History: Reports: Cholecystectomy, Colonoscopy, EGD Female Surgical History: Reports: D&C, Hysterectomy, Salpingo-Oophorectomy, Tubal Ligation Social & Family History - Family History Family Medical History: Noncontributory - Tobacco Use Smoking Status *Q: Never Smoker - Caffeine Use Caffeine Use: Reports: None - Recreational Drug Use Recreational Drug Use: No - Living Situation & Occupation Living situation: Reports: , with Spouse Occupation: Retired ED ROS GENERAL - Review of Systems Review Of Systems: See Below Constitutional: Reports: Fever HEENT: Reports: No Symptoms Respiratory: Reports: No Symptoms Cardiovascular: Reports: No Symptoms Endocrine: Reports: No Symptoms GI/Abdominal: Reports: Abdominal Pain, Nausea. Denies: Diarrhea, Vomiting : Reports: No Symptoms ED EXAM, GI/ABD - Physical Exam Exam: See Below Exam Limited By: No Limitations General Appearance: Alert, No Apparent Distress Ears: Normal External Exam Nose: Normal Inspection Head: Atraumatic, Normocephalic Neck: Normal Inspection Respiratory/Chest: No Respiratory Distress, Lungs Clear, Normal Breath Sounds Cardiovascular: Regular Rate, Rhythm, No Edema, No Murmur GI/Abdominal Exam: Soft, No Organomegaly, No Mass, Tender (Moderate tenderness to the lower abdomen) Course - Vital Signs Last Recorded V/S: Last Vital Signs Temp 98.5 F 12/27/19 19:21 Pulse 76 12/27/19 19:21 Resp 19 12/27/19 19:21 BP 141/56 H 12/27/19 19:21 Pulse Ox 96 12/27/19 19:21 - Orders/Labs/Meds Orders: Active Orders 24 hr Category Date Time Status Peripheral IV Care [RC] . DIRECTED Care 12/27/19 19:32 Active UA W/MICROSCOPIC [URIN] Stat Lab 12/27/19 19:31 Ordered HYDROmorphone [Dilaudid] Med 12/27/19 21:29 Once 0.5 mg IVPUSH ONETIME ONE Sodium Chloride 0.9% [Saline Flush] Med 12/27/19 19:31 Active 10 ml FLUSH ASDIRECTED PRN cefTRIAXone [Rocephin] 1 gm Med 12/27/19 21:28 Ordered Sodium Chloride 0.9% [Normal Saline] 100 ml IV ONETIME ED Antiemetic Medication Reflex [OM.PC] Stat Oth 12/27/19 19:32 Ordered Peripheral IV Insertion Adult [OM.PC] Stat Oth 12/27/19 19:31 Ordered Medication Orders Ceftriaxone Sodium 1 gm/ (Sodium Chloride) 100 mls @ 200 mls/hr IV ONETIME ONE Stop: 12/27/19 21:57 Sodium Chloride (Saline Flush) 10 ml FLUSH ASDIRECTED PRN PRN Reason: Keep Vein Open Last Admin: 12/27/19 19:39 Dose: 10 ml Documented by: JASON Labs: Laboratory Tests 12/27/19 12/27/19 Range/Units 19:36 19:36 WBC 10.87 H (3.98-10.04) K/mm3 RBC 4.38 (3.98-5.22) M/mm3 Hgb 13.1 (11.2-15.7) gm/dl Hct 39.3 (34.1-44.9) % MCV 89.7 (79.4-94.8) fl MCH 29.9 (25.6-32.2) pg MCHC 33.3 (32.2-35.5) g/dl RDW Std Deviation 41.5 (36.4-46.3) fL Plt Count 203 (182-369) K/mm3 MPV 10.5 (9.4-12.3) fl Neut % (Auto) 74.0 H (34.0-71.1) % Lymph % (Auto) 14.4 L (19.3-51.7) % [place] % (Auto) 10.1 (4.7-12.5) % Eos % (Auto) 1.0 (0.7-5.8) Baso % (Auto) 0.4 (0.1-1.2) % Neut # (Auto) 8.04 H (1.56-6.13) K/mm3 Lymph # (Auto) 1.57 (1.18-3.74) K/mm3 [place] # (Auto) 1.10 H (0.24-0.36) K/mm3 Eos # (Auto) 0.11 (0.04-0.36) K/mm3 Baso # (Auto) 0.04 (0.01-0.08) K/mm3 Manual Slide Review Normal smear Sodium 138 (136-145) mEq/L Potassium 3.4 L (3.5-5.1) mEq/L Chloride 104 (98-107) mEq/L Carbon Dioxide 24 (21-32) mEq/L Anion Gap 13.4 (5-15) BUN 22 H (7-18) mg/dL Creatinine 0.8 (0.55-1.02) mg/dL Est Cr Clr Drug Dosing 59.72 mL/min Estimated GFR (MDRD) > 60 (>60) mL/min BUN/Creatinine Ratio 27.5 H (14-18) Glucose 137 H (80-115) mg/dL Calcium 8.9 (8.5-10.1) mg/dL Total Bilirubin 1.2 H (0.2-1.0) mg/dL AST 20 (15-37) U/L ALT 31 (14-59) U/L Alkaline Phosphatase 80 (46-116) U/L Total Protein 7.2 (6.4-8.2) g/dl Albumin 3.4 (3.4-5.0) g/dl Globulin 3.8 gm/dL Albumin/Globulin Ratio 0.9 L (1-2) Lipase 60 L (73-393) U/L Meds: Medications Generic Name Dose Route Start Last Admin Trade Name Freq PRN Reason Stop Dose Admin Ceftriaxone Sodium 1 gm/ 100 mls @ 200 mls/hr 12/27/19 21:28 Sodium Chloride IV 12/27/19 21:57 ONETIME ONE Sodium Chloride 10 ml 12/27/19 19:31 12/27/19 19:39 Saline Flush FLUSH 10 ml ASDIRECTED PRN Administration Keep Vein Open Discontinued Medications Generic Name Dose Route Start Last Admin Trade Name Freq PRN Reason Stop Dose Admin Hydromorphone HCl 0.5 mg 12/27/19 19:33 12/27/19 19:39 Dilaudid IVPUSH 12/27/19 19:34 0.5 mg ONETIME ONE Administration Sodium Chloride 1,000 mls @ 1,000 mls/hr 12/27/19 19:31 12/27/19 19:39 Normal Saline IV 12/27/19 20:30 1,000 mls/hr .BOLUS STA Administration Ondansetron HCl 4 mg 12/27/19 19:31 12/27/19 19:38 Zofran IVPUSH 12/27/19 19:32 4 mg ONETIME ONE Administration - Re-Assessments/Exams Free Text/Narrative Re-Assessment/Exam: 12/27/19 19:37 I ordered an IV NS 500mL bolus, zofran 4mg IV, dilaudid 0.5mg IV, labs, UA and a CT of her abdomen and pelvis. 12/27/19 21:30 Her WBC was elevated at 10.87. Her K was low at 3.4. Her glucose was 137. Her lipase is low at 60. Her CT shows findings compatible with sigmoid diverticulitis. No other acute findings is seen. I gave her a dose of rocehin and more dilaudid. I will discharge her home on augmentin and something for pain and nausea. Departure - Departure Time of Disposition: 21:35 Disposition: Home, Self-Care 01 Condition: Good Clinical Impression: Diverticulitis - Discharge Information *PRESCRIPTION DRUG MONITORING PROGRAM REVIEWED*: No *COPY OF PRESCRIPTION DRUG MONITORING REPORT IN PATIENT JOSE RAMON: No Prescriptions: Amoxicillin/Clavulanate K [Augmentin 875-125 MG] 1 tab PO BID #20 tablet Hydrocodone/Acetaminophen [Hydrocodone-Acetamin 5-325 mg] 1 - 2 each PO Q6HR PRN #20 tablet PRN Reason: Pain Ondansetron [Zofran ODT] 4 mg PO Q6H PRN #20 tab.dis PRN Reason: Nausea\vomiting Referrals: Lisbeth Juan MD [Primary Care Provider] - 1 Week Forms: ED Department Discharge Additional Instructions: Take the augmentin 2 times per day fro 10 days. Drink plenty of water. Take the zofran every 6 hours as needed for nausea and vomiting. Take motrin or tylenol for pain. If that does not help, try the hydrocodone. Please return if you are worse. Sepsis Event Note (ED) - Evaluation Sepsis Screening Result: No Definite Risk - Focused Exam Vital Signs: Vital Signs Temp Pulse Resp BP Pulse Ox 12/27/19 19:21 98.5 F 76 19 141/56 H 96 - My Orders Last 24 Hours: My Active Orders 12/27/19 19:31 UA W/MICROSCOPIC [URIN] Stat Sodium Chloride 0.9% [Saline Flush] 10 ml FLUSH ASDIRECTED PRN Peripheral IV Insertion Adult [OM.PC] Stat 12/27/19 19:32 Peripheral IV Care [RC] . DIRECTED ED Antiemetic Medication Reflex [OM.PC] Stat 12/27/19 21:28 cefTRIAXone [Rocephin] 1 gm Sodium Chloride 0.9% [Normal Saline] 100 ml IV ONETIME 12/27/19 21:29 HYDROmorphone [Dilaudid] 0.5 mg IVPUSH ONETIME ONE - Assessment/Plan Last 24 Hours: My Active Orders 12/27/19 19:31 UA W/MICROSCOPIC [URIN] Stat Sodium Chloride 0.9% [Saline Flush] 10 ml FLUSH ASDIRECTED PRN Peripheral IV Insertion Adult [OM.PC] Stat 12/27/19 19:32 Peripheral IV Care [RC] . DIRECTED ED Antiemetic Medication Reflex [OM.PC] Stat 12/27/19 21:28 cefTRIAXone [Rocephin] 1 gm Sodium Chloride 0.9% [Normal Saline] 100 ml IV ONETIME 12/27/19 21:29 HYDROmorphone [Dilaudid] 0.5 mg IVPUSH ONETIME ONE
--- NOTE | 2019-12-27 21:08 | CT ---
CT abdomen and pelvis Technique: Multiple axial sections were obtained from above the dome of the diaphragm inferiorly through the pubic symphysis. Intravenous contrast was utilized. Oral contrast is also noted. Delayed images were obtained through the bladder. Comparison: Previous CT abdomen and pelvis exam of 08/28/18. Findings: Inflammatory change is noted around a portion of the sigmoid colon in an area of diverticulosis. These findings are felt compatible with diverticulitis. Visualized lung bases show nothing acute. Liver contains no focal abnormality. Fairly large hiatal hernia is noted. Contrast noted within the distal esophagus compatible with reflux. Spleen appears within normal limits. Left kidney shows several small cortical lesions most likely representing minimal cortical cyst. Kidneys otherwise appear within normal limits. Adrenal glands show no nodule. Pancreas is within normal limits. Surgical clips are seen from prior cholecystectomy. Aorta shows no aneurysm. No retroperitoneal adenopathy or mesenteric abnormalities are seen. No pelvic mass or adenopathy is seen. Delayed images shows contrast within the bladder. Bone window settings were reviewed which shows mild scattered degenerative change within the spine. No acute osseous finding is seen. Impression: 1. Findings compatible with sigmoid diverticulitis. 2. No other acute finding is seen. Diagnostic code #3 This report was dictated in MDT
[2019-12-27] MEDS ORDERED: cefTRIAXone 1 GM in Sodium Chloride 0.9% 100 ML IV ONE (21:28)
== END 2019-12-27 22:16 | disposition home or self-care (01) ==
LOC: JD.ED 19:01
DX: K57.32 Diverticulitis of large intestine without perforation or abscess without bleeding (principal); I10 Essential (primary) hypertension; E78.00 Pure hypercholesterolemia, unspecified; K21.9 Gastro-esophageal reflux disease without esophagitis; F41.9 Anxiety disorder, unspecified; R79.89 Other specified abnormal findings of blood chemistry; Z79.899 Other long term (current) drug therapy
CPT/HCPCS: 36415; 74177; 80053; 81001; 83690; 85025; 96361; 96365; 96375; 96376; 99284; J0696; J1170; J2405; J7030; J7050

== ENCOUNTER 2020-11-17 08:24 | Emergency (ER) | payer MEDICARE, BC ==
[2020-11-17] MEDS ORDERED: Ondansetron 4 MG/2 ML SDV IVPUSH ONE (08:52)
--- NOTE | 2020-11-17 09:23 | EDM.PDOC ---
ED HPI GENERAL MEDICAL PROBLEM - General Chief Complaint: Abdominal Pain Stated Complaint: LOW RT SIDE ABD PAIN Time Seen by Provider: 11/17/20 09:13 - History of Present Illness INITIAL COMMENTS - FREE TEXT/NARRATIVE: 70-year-old female presents the emergency room with abdominal pain. This pain started abruptly about 2 hours ago. Its on the right side. The patient has a history of diverticulitis but this is always affected the left side. This pain is very much like the pain she had with diverticulitis however. Patient has never had kidney stones. The pain is worse in the right lower quadrant. Patient still has her appendix she has had a cholecystectomy in the past. She has not had any burning or frequency with urination she is not aware of any fevers or chills. The patient was told told at one point she had a kidney stone in her kidney but this is not caused her any grief that she is aware of. Right Abdomen Pain Score (Numeric/FACES): 9 - Related Data Allergies Allergy/AdvReac Type Severity Reaction Status Date / Time [id number] Reductase Allergy Leg Cramps Verified 11/17/20 08:44 Inhibitor Home Meds: Home Meds LORazepam [Ativan] 0.5 mg PO BID PRN 12/25/17 [History] Levothyroxine [Synthroid] 50 mcg PO ACBREAKFAST 12/25/17 [History] Multivitamin with Minerals [Multiple Vitamin] 1 tab PO DAILY PRN 12/25/17 [History] Rosuvastatin [Crestor] 20 mg PO BEDTIME 12/25/17 [History] calcium polycarbophiL [Fibercon] 1,250 mg PO BID 12/25/17 [History] Fluocinonide [Lidex 0.05% Crm] 15 gm TOP DAILY PRN 08/28/18 [History] Metoprolol Succinate [Toprol XL 50mg] 50 mg PO DAILY 08/28/18 [History] Omeprazole 20 mg PO BIDAC 08/28/18 [History] hydroCHLOROthiazide [Hydrochlorothiazide] 12.5 mg PO DAILY 08/28/18 [History] Saccharomyces Boulardii [Florastor] 250 mg PO QID #32 capsule 08/30/18 [Rx] Amoxicillin/Clavulanate K [Augmentin 875-125 MG] 1 tab PO BID #20 tablet 08/21/20 [Rx] Hydrocodone/Acetaminophen [Hydrocodone-Acetamin 5-325 mg] 1 - 2 each PO Q6HR PRN #20 tablet 12/27/19 [Rx] Ondansetron [Zofran ODT] 4 mg PO Q6H PRN #20 tab.dis 12/27/19 [Rx] Ondansetron [Ondansetron ODT] 4 mg PO Q6H PRN #12 tab.rapdis 11/17/20 [Rx] Past Medical History HEENT History: Reports: Impaired Vision Cardiovascular History: Reports: High Cholesterol, Hypertension Gastrointestinal History: Reports: Colon Polyp, Diverticulosis, Gastritis, GERD, Hiatal Hernia Other Gastrointestinal History: esophagitis [employer]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: , Spontaneous Neurological History: Reports: Migraines Psychiatric History: Reports: Anxiety Endocrine/Metabolic History: Reports: Hypothyroidism Hematologic History: Reports: Anemia Other Dermatologic History: rashes - Infectious Disease History Infectious Disease History: Reports: C-Difficile, Chicken Pox, Measles, Mumps - Past Surgical History HEENT Surgical History: Reports: Oral Surgery GI Surgical History: Reports: Cholecystectomy, Colonoscopy, EGD Other GI Surgeries/Procedures: hemorrhoidectomy Female Surgical History: Reports: D&C, Hysterectomy, Salpingo-Oophorectomy, Tubal Ligation Social & Family History - Family History Family Medical History: No Pertinent Family History - Tobacco Use Tobacco Use Status *Q: Never Tobacco User Second Hand Smoke Exposure: No - Caffeine Use Caffeine Use: Reports: Coffee - Alcohol Use Days Per Week of Alcohol Use: 7 Number of Drinks Per Day: 1 Total Drinks Per Week: 7 - Recreational Drug Use Recreational Drug Use: No - Living Situation & Occupation Living situation: Reports: , with Spouse Occupation: Retired ED ROS GENERAL - Review of Systems Review Of Systems: See Below Constitutional: Reports: No Symptoms HEENT: Reports: No Symptoms Respiratory: Reports: No Symptoms Cardiovascular: Reports: No Symptoms GI/Abdominal: Reports: Abdominal Pain, Nausea. Denies: Constipation, Diarrhea : Reports: No Symptoms Musculoskeletal: Reports: No Symptoms Skin: Reports: No Symptoms Neurological: Reports: No Symptoms ED EXAM, GENERAL - Physical Exam Exam: See Below Exam Limited By: No Limitations General Appearance: Alert, No Apparent Distress, Other (Patient's pain has subsided somewhat she received some Zofran shortly before my initial evaluation) Head: Atraumatic, Normocephalic Neck: Normal Inspection, Supple, Non-Tender, Full Range of Motion Respiratory/Chest: No Respiratory Distress, Lungs Clear, Normal Breath Sounds Cardiovascular: Regular Rate, Rhythm, No Edema, No Murmur GI/Abdominal: Normal Bowel Sounds, Soft, Tender (Lower quadrant discomfort at this time it started out in the flank. No rigidity rebound or guarding appreciated), Other (Patient states that all the bumps were very uncomfortable while her drove her here.) Back Exam: Normal Inspection. No: CVA Tenderness (L), CVA Tenderness (R) Extremities: Normal Inspection, No Pedal Edema Neurological: Alert, Oriented, Normal Cognition Course - Vital Signs Last Recorded V/S: Last Vital Signs Temp 35.3 C L 11/17/20 08:35 Pulse 60 11/17/20 09:30 Resp 16 11/17/20 09:30 BP 140/60 11/17/20 09:30 Pulse Ox 95 11/17/20 09:30 - Orders/Labs/Meds Orders: Active Orders 24 hr Category Date Time Status Lactated Ringers [Ringers, Lactated] 1,000 ml Med 11/17/20 10:15 Active IV ASDIRECTED Medication Orders Lactated Ringer's (Ringers, Lactated) 1,000 mls @ 150 mls/hr IV ASDIRECTED PATY Labs: Laboratory Tests 11/17/20 11/17/20 11/17/20 Range/Units 09:00 09:00 09:50 WBC 5.46 (3.98-10.04) K/mm3 RBC 4.72 (3.98-5.22) M/mm3 Hgb 14.4 (11.2-15.7) gm/dl Hct 42.7 (34.1-44.9) % MCV 90.5 (79.4-94.8) fl MCH 30.5 (25.6-32.2) pg MCHC 33.7 (32.2-35.5) g/dl RDW Std Deviation 41.2 (36.4-46.3) fL Plt Count 200 (182-369) K/mm3 MPV 10.6 (9.4-12.3) fl Neutrophils % (Manual) 57 (40-60) % Band Neutrophils % 5 (0-10) % Lymphocytes % (Manual) 24 (20-40) % Atypical Lymphs % 0 % Monocytes % (Manual) 10 (2-10) % Eosinophils % (Manual) 4 (0.7-5.8) % Basophils % (Manual) 0 L (0.1-1.2) Platelet Estimate Adequate Plt Morphology Comment Normal RBC Morph Comment Normal Sodium 142 (136-145) mEq/L Potassium 3.9 (3.5-5.1) mEq/L Chloride 104 (98-107) mEq/L Carbon Dioxide 26 (21-32) mEq/L Anion Gap 15.9 H (5-15) BUN 25 H (7-18) mg/dL Creatinine 0.9 (0.55-1.02) mg/dL Est Cr Clr Drug Dosing 52.34 mL/min Estimated GFR (MDRD) > 60 (>60) mL/min BUN/Creatinine Ratio 27.8 H (14-18) Glucose 111 H (70-99) mg/dL Calcium 9.4 (8.5-10.1) mg/dL Total Bilirubin 1.4 H (0.2-1.0) mg/dL AST 27 (15-37) U/L ALT 42 (14-59) U/L Alkaline Phosphatase 65 (46-116) U/L Total Protein 7.4 (6.4-8.2) g/dl Albumin 3.9 (3.4-5.0) g/dl Globulin 3.5 gm/dL Albumin/Globulin Ratio 1.1 (1-2) Lipase 70 L (73-393) U/L Urine Color Yellow (Yellow) Urine Appearance Clear (Clear) Urine pH 7.0 (5.0-8.0) Ur Specific [place] 1.025 (1.005-1.030) Urine Protein Negative (Negative) Urine Glucose (UA) Negative (Negative) Urine Ketones Negative (Negative) Urine Occult Blood Negative (Negative) Urine Nitrite Negative (Negative) Urine Bilirubin Negative (Negative) Urine Urobilinogen 0.2 (0.2-1.0) Ur Leukocyte Esterase Negative (Negative) Meds: Medications Generic Name Dose Route Start Last Admin Trade Name Freq PRN Reason Stop Dose Admin Lactated Ringer's 1,000 mls @ 150 mls/hr 11/17/20 10:15 Ringers, Lactated IV ASDIRECTED PATY Discontinued Medications Generic Name Dose Route Start Last Admin Trade Name Freq PRN Reason Stop Dose Admin Lactated Ringer's 500 mls @ 999 mls/hr 11/17/20 10:06 11/17/20 10:20 Ringers, Lactated IV 11/17/20 10:36 999 mls/hr .BOLUS ONE Administration Ondansetron HCl 4 mg 11/17/20 08:52 11/17/20 09:01 Ondansetron 4 Mg/2 Ml Sdv IVPUSH 11/17/20 08:53 4 mg ONETIME ONE Administration - Re-Assessments/Exams Free Text/Narrative Re-Assessment/Exam: 11/17/20 10:40 Labs are pretty much unrevealing except for some mild dehydration. CT was a very good quality unenhanced study no evidence of obstructing kidney stone. Diverticuli seen in the descending colon to a lesser degree in the transverse and right colon no inflammatory or acute changes with it. The appendix was visualized and thought to be normal. I did discuss CT findings with the patient now she is doing better we will stop the work-up at this point. Discharge her with some Zofran have her return if her symptoms worsen or if she is not better in 24 hours Departure - Departure Time of Disposition: 10:44 Disposition: Home, Self-Care 01 Clinical Impression: Abdominal pain of unknown etiology, Nausea - Discharge Information Referrals: Lisbeth Juan MD [Primary Care Provider] - Forms: ED Department Discharge Additional Instructions: Return to the emergency room with any questions problems or worsening symptoms. Return in 24 hours if not improving return sooner if getting worse. I sent a prescription electronically to [facility] [place] [address] [facility]. Use 1 every 6 hours as needed for nausea. Clear liquid diet for the next 24 hours then slowly advance as tolerated. Sepsis Event Note (ED) - Evaluation Sepsis Screening Result: No Definite Risk - Focused Exam Vital Signs: Vital Signs Temp Pulse Resp BP Pulse Ox 11/17/20 09:30 60 16 140/60 95 11/17/20 08:35 35.3 C L 68 20 162/79 H 98 - My Orders Last 24 Hours: My Active Orders 11/17/20 10:15 Lactated Ringers [Ringers, Lactated] 1,000 ml IV ASDIRECTED - Assessment/Plan Last 24 Hours: My Active Orders 11/17/20 10:15 Lactated Ringers [Ringers, Lactated] 1,000 ml IV ASDIRECTED
[2020-11-17] MEDS ORDERED: Lactated Ringers 500 ML IV ONE (10:06)
[2020-11-17] MEDS ORDERED: Lactated Ringers 1,000 ML IV SCH (10:15)
--- NOTE | 2020-11-17 10:22 | CT ---
CT abdomen and pelvis Technique: Multiple axial sections were obtained from above the dome of the diaphragm inferiorly through the pubic symphysis. Intravenous and oral contrast were not utilized. Study has been performed as a ureteral stone protocol. Reconstructed coronal and sagittal images were obtained. Comparison: Prior CT abdomen and pelvis exam of 12/27/19. Findings: Two small nonobstructing calculi are seen within the lower right kidney. These measure less than 5 mm. Left kidney shows no abnormal calcifications. No ureteral dilatation or ureteral stone is seen on either side. No bladder calculi are seen. Visualized lung bases show nothing acute. Noncontrast appearance of the liver shows no focal abnormality. Surgical clips are noted from prior cholecystectomy. Moderately large hiatal hernia is present. Adrenal glands show no nodules. Pancreas shows no discrete abnormality. Abdominal aorta shows atherosclerotic calcification which continues into the iliac vessels. No aneurysm is seen. No retroperitoneal adenopathy is noted. No mesenteric abnormalities are seen. Numerous diverticuli are seen within the sigmoid and descending colon. Lesser diverticuli are seen within the transverse and right colon. No inflammatory change is seen. No free fluid is noted. Appendix is seen which is normal in size. Bone window settings were reviewed which show disc space narrowing at L5-S1. Small amount of epidural air is noted from vacuum phenomena going through a ruptured annulus. Lesser degenerative change is seen scattered within other portions of the spine. Impression: 1. Two nonobstructing calculi within the right kidney. No ureteral dilatation or ureteral stone is seen. 2. Moderately large hiatal hernia. 3. Numerous diverticuli are seen within the colon, most prominent within the sigmoid region, with no inflammatory change of diverticulitis. 4. Other findings believed to be incidental as noted above. Diagnostic code #2
== END 2020-11-17 11:10 | disposition home or self-care (01) ==
LOC: JD.ED 08:24
DX: R10.31 Right lower quadrant pain (principal); R11.0 Nausea; E78.00 Pure hypercholesterolemia, unspecified; I10 Essential (primary) hypertension; K21.9 Gastro-esophageal reflux disease without esophagitis; E03.9 Hypothyroidism, unspecified; D64.9 Anemia, unspecified; Z90.49 Acquired absence of other specified parts of digestive tract; Z88.8 Allergy status to other drugs, medicaments and biological substances; Z79.899 Other long term (current) drug therapy
CPT/HCPCS: 36415; 74176; 80053; 81003; 83690; 85007; 85027; 96374; 99284; J2405; J7120

== ENCOUNTER 2020-11-26 12:51 | Emergency (ER) | payer MEDICARE, BC ==
[2020-11-26] MEDS ORDERED: Sodium Chloride 0.9% 1,000 ML IV STA (13:22)
[2020-11-26] MEDS ORDERED: Sodium Chloride 0.9% 10 ML Syringe FLUSH PRN (13:22)
[2020-11-26] MEDS ORDERED: Ondansetron 4 MG/2 ML SDV IVPUSH ONE ×2 (13:22→16:45)
[2020-11-26] MEDS ORDERED: HYDROmorphone 0.5 MG/0.5 ML Syringe IVPUSH ONE ×2 (13:23→15:57)
[2020-11-26] MEDS ORDERED: Diatrizoate Meglumine/Diatrizoate Sodium 37% 120 ML Bottle PO ONE (13:29)
[2020-11-26] MEDS ORDERED: Iopamidol 612 MG/ML 100 ML Bottle IVPUSH ONE (13:29)
[2020-11-26] MEDS ORDERED: Iopamidol 612 MG/ML 50 ML SDV IVPUSH ONE (13:29)
[2020-11-26] MEDS ORDERED: Sodium Chloride 0.9% 10 ML Syringe FLUSH SCH (13:30)
--- NOTE | 2020-11-26 14:39 | EDM.PDOC ---
ED HPI GENERAL MEDICAL PROBLEM - General Chief Complaint: Abdominal Pain Stated Complaint: RT SIDE PAIN Time Seen by Provider: 11/26/20 13:08 Source of Information: Reports: Patient History Limitations: Reports: No Limitations - History of Present Illness INITIAL COMMENTS - FREE TEXT/NARRATIVE: The patient presents with right sided abdominal pain and nausea. This all started about 10 days ago. She was seen here [address] scan was done and there was no sign of kidney stones but she did have many diverticuli but none were inflamed. The pain is more on the left when she has diverticulitis. She went to see Dr Juan and Dr Juan but her on some antibiotics for diverticulitis. That did not help. She still has pain to her right abdomen and nausea. She has no fever, chills, cough, chest pain, shortness of breath, diarrhea, or dysuria. She had her gallbladder removed but she still has her appendix. Onset: Gradual Duration: Day(s): (10) Location: Reports: Abdomen Quality: Reports: Sharp Severity: Moderate Improves with: Reports: None Worsens with: Reports: None Associated Symptoms: Reports: Nausea/Vomiting. Denies: Chest Pain, Cough, Fever/Chills, Headaches, Shortness of Breath Right Lower Abdomen Pain Score (Numeric/FACES): 4 - Related Data Allergies Allergy/AdvReac Type Severity Reaction Status Date / Time [id number] Reductase AdvReac Severe Leg Cramps Verified 11/26/20 13:11 Inhibitor Home Meds: Home Meds LORazepam [Ativan] 0.5 mg PO BID PRN 12/25/17 [History] Levothyroxine [Synthroid] 50 mcg PO ACBREAKFAST 12/25/17 [History] Multivitamin with Minerals [Multiple Vitamin] 1 tab PO DAILY PRN 12/25/17 [History] Rosuvastatin [Crestor] 20 mg PO BEDTIME 12/25/17 [History] calcium polycarbophiL [Fibercon] 1,250 mg PO BID 12/25/17 [History] Fluocinonide [Lidex 0.05% Crm] 15 gm TOP DAILY PRN 08/28/18 [History] Metoprolol Succinate [Toprol XL 50mg] 50 mg PO DAILY 08/28/18 [History] Omeprazole 20 mg PO BIDAC 08/28/18 [History] hydroCHLOROthiazide [Hydrochlorothiazide] 12.5 mg PO DAILY 08/28/18 [History] Saccharomyces Boulardii [Florastor] 250 mg PO QID #32 capsule 08/30/18 [Rx] Hydrocodone/Acetaminophen [Hydrocodone-Acetamin 5-325 mg] 1 - 2 each PO Q6H PRN #15 tablet 11/26/20 [Rx] Past Medical History HEENT History: Reports: Impaired Vision Cardiovascular History: Reports: High Cholesterol, Hypertension Gastrointestinal History: Reports: Colon Polyp, Diverticulosis, Gastritis, GERD, Hiatal Hernia Other Gastrointestinal History: esophagitis [employer] History: Reports: , Spontaneous Neurological History: Reports: Migraines Psychiatric History: Reports: Anxiety Endocrine/Metabolic History: Reports: Hypothyroidism, Obesity/BMI 30+ Hematologic History: Reports: Anemia Other Dermatologic History: rashes - Infectious Disease History Infectious Disease History: Reports: C-Difficile, Chicken Pox, Measles, Mumps - Past Surgical History HEENT Surgical History: Reports: Oral Surgery GI Surgical History: Reports: Cholecystectomy, Colonoscopy, EGD Other GI Surgeries/Procedures: hemorrhoidectomy Female Surgical History: Reports: D&C, Hysterectomy, Salpingo-Oophorectomy, Tubal Ligation Social & Family History - Family History Family Medical History: No Pertinent Family History - Tobacco Use Tobacco Use Status *Q: Never Tobacco User - Caffeine Use Caffeine Use: Reports: Coffee - Recreational Drug Use Recreational Drug Use: No - Living Situation & Occupation Living situation: Reports: , with Spouse Occupation: Retired ED ROS GENERAL - Review of Systems Review Of Systems: See Below Constitutional: Reports: No Symptoms HEENT: Reports: No Symptoms Respiratory: Reports: No Symptoms Cardiovascular: Reports: No Symptoms Endocrine: Reports: No Symptoms GI/Abdominal: Reports: Abdominal Pain, Nausea. Denies: Diarrhea, Vomiting : Reports: No Symptoms Musculoskeletal: Reports: No Symptoms Skin: Reports: No Symptoms ED EXAM, GI/ABD - Physical Exam Exam: See Below Exam Limited By: No Limitations General Appearance: Alert, No Apparent Distress Ears: Normal External Exam Nose: Normal Inspection Head: Atraumatic, Normocephalic Neck: Normal Inspection Respiratory/Chest: No Respiratory Distress, Lungs Clear, Normal Breath Sounds Cardiovascular: Regular Rate, Rhythm, No Edema, No Murmur GI/Abdominal Exam: Soft, No Organomegaly, No Mass, Tender (Moderate tenderness to the right mid abdomen) Course - Vital Signs Last Recorded V/S: Last Vital Signs Temp 96.4 F L 11/26/20 13:08 Pulse 65 11/26/20 13:08 Resp 16 11/26/20 13:08 BP 155/64 H 11/26/20 13:08 Pulse Ox 97 11/26/20 13:08 - Orders/Labs/Meds Orders: Active Orders 24 hr Category Date Time Status Peripheral IV Care [RC] . DIRECTED Care 11/26/20 13:22 Active Sodium Chloride 0.9% [Saline Flush] Med 11/26/20 13:30 Active 10 ml FLUSH ASDIRECTED Sodium Chloride 0.9% [Saline Flush] Med 11/26/20 13:22 Active 10 ml FLUSH ASDIRECTED PRN ED Antiemetic Medication Reflex [OM.PC] Stat Oth 11/26/20 13:22 Ordered Peripheral IV Insertion Adult [OM.PC] Stat Oth 11/26/20 13:22 Ordered Medication Orders Sodium Chloride (Sodium Chloride 0.9% 10 Ml Syringe) 10 ml FLUSH ASDIRECTED PRN PRN Reason: Keep Vein Open Last Admin: 11/26/20 13:38 Dose: 10 ml Documented by: JASON Sodium Chloride (Sodium Chloride 0.9% 10 Ml Syringe) 10 ml FLUSH ASDIRECTED PATY Last Admin: 11/26/20 14:59 Dose: 10 ml Documented by: KINJAL Labs: Laboratory Tests 11/26/20 11/26/20 11/26/20 Range/Units 13:30 13:30 13:40 WBC 8.05 (3.98-10.04) K/mm3 RBC 4.56 (3.98-5.22) M/mm3 Hgb 13.8 (11.2-15.7) gm/dl Hct 40.5 (34.1-44.9) % MCV 88.8 (79.4-94.8) fl MCH 30.3 (25.6-32.2) pg MCHC 34.1 (32.2-35.5) g/dl RDW Std Deviation 40.5 (36.4-46.3) fL Plt Count 216 (182-369) K/mm3 MPV 10.0 (9.4-12.3) fl Neut % (Auto) 71.2 H (34.0-71.1) % Lymph % (Auto) 18.0 L (19.3-51.7) % [place] % (Auto) 8.9 (4.7-12.5) % Eos % (Auto) 1.7 (0.7-5.8) Baso % (Auto) 0.2 (0.1-1.2) % Neut # (Auto) 5.72 (1.56-6.13) K/mm3 Lymph # (Auto) 1.45 (1.18-3.74) K/mm3 [place] # (Auto) 0.72 H (0.24-0.36) K/mm3 Eos # (Auto) 0.14 (0.04-0.36) K/mm3 Baso # (Auto) 0.02 (0.01-0.08) K/mm3 Sodium 143 (136-145) mEq/L Potassium 3.2 L (3.5-5.1) mEq/L Chloride 105 (98-107) mEq/L Carbon Dioxide 28 (21-32) mEq/L Anion Gap 13.2 (5-15) BUN 14 (7-18) mg/dL Creatinine 0.7 (0.55-1.02) mg/dL Est Cr Clr Drug Dosing 67.29 mL/min Estimated GFR (MDRD) > 60 (>60) mL/min BUN/Creatinine Ratio 20.0 H (14-18) Glucose 139 H (70-99) mg/dL Calcium 8.9 (8.5-10.1) mg/dL Total Bilirubin 0.8 (0.2-1.0) mg/dL AST 27 (15-37) U/L ALT 22 (14-59) U/L Alkaline Phosphatase 56 (46-116) U/L Total Protein 7.0 (6.4-8.2) g/dl Albumin 3.6 (3.4-5.0) g/dl Globulin 3.4 gm/dL Albumin/Globulin Ratio 1.1 (1-2) Lipase 87 (73-393) U/L Urine Color Light yellow (Yellow) Urine Appearance Clear (Clear) Urine pH 7.0 (5.0-8.0) Ur Specific [place] 1.020 (1.005-1.030) Urine Protein Negative (Negative) Urine Glucose (UA) Negative (Negative) Urine Ketones Negative (Negative) Urine Occult Blood Negative (Negative) Urine Nitrite Negative (Negative) Urine Bilirubin Negative (Negative) Urine Urobilinogen 0.2 (0.2-1.0) Ur Leukocyte Esterase Trace H (Negative) Urine RBC 0-5 (0-5) /hpf Urine WBC 0-5 (0-5) /hpf Ur Epithelial Cells 0-5 (0-5) /hpf Urine Bacteria Not seen (FEW) /hpf Urine Mucus Not seen (FEW) /hpf Meds: Medications Generic Name Dose Route Start Last Admin Trade Name Freq PRN Reason Stop Dose Admin Sodium Chloride 10 ml 11/26/20 13:22 11/26/20 13:38 Sodium Chloride 0.9% 10 Ml Syringe FLUSH 10 ml ASDIRECTED PRN Administration Keep Vein Open Sodium Chloride 10 ml 11/26/20 13:30 11/26/20 14:59 Sodium Chloride 0.9% 10 Ml Syringe FLUSH 10 ml ASDIRECTED PATY Administration Discontinued Medications Generic Name Dose Route Start Last Admin Trade Name Freq PRN Reason Stop Dose Admin Diatrizoate Meglum/Diatrizoate Sod 120 ml 11/26/20 13:29 11/26/20 14:59 Diatrizoate Meglumine/Diatrizoate Sodium 37% 120 Ml Bottle PO 11/26/20 13:30 45 ml ONETIME ONE Administration Hydromorphone HCl 0.25 mg 11/26/20 13:23 11/26/20 13:39 Hydromorphone 0.5 Mg/0.5 Ml Syringe IVPUSH 11/26/20 13:24 0.25 mg ONETIME ONE Administration Hydromorphone HCl 0.5 mg 11/26/20 15:57 Hydromorphone 0.5 Mg/0.5 Ml Syringe IVPUSH 11/26/20 15:58 ONETIME ONE Sodium Chloride 1,000 mls @ 1,000 mls/hr 11/26/20 13:22 11/26/20 13:37 Normal Saline IV 11/26/20 14:21 1,000 mls/hr .BOLUS STA Administration Iopamidol 50 ml 11/26/20 13:29 11/26/20 14:58 Iopamidol 612 Mg/Ml 50 Ml Sdv IVPUSH 11/26/20 13:30 25 ml ONETIME ONE Administration Iopamidol 100 ml 11/26/20 13:29 11/26/20 14:58 Iopamidol 612 Mg/Ml 100 Ml Bottle IVPUSH 11/26/20 13:30 100 ml ONETIME ONE Administration Ondansetron HCl 4 mg 11/26/20 13:22 11/26/20 13:38 Ondansetron 4 Mg/2 Ml Sdv IVPUSH 11/26/20 13:23 4 mg ONETIME ONE Administration - Re-Assessments/Exams Free Text/Narrative Re-Assessment/Exam: 11/26/20 14:39 I ordered an IV NS 1L bolus, zofran 4mg IV, dilaudid 0.5mg IV, labs, UA and a CT of her abdomen and pelvis with IV and oral contrast. Her CBC looks good. Her K is low at 3.2. Her glucose is elevated at 139. 11/26/20 16:25 Her UA shows no UTI. Her CT shows moderately large hiatal hernia with gastroesophageal reflux into the esophagus. Other findings which are stable fr om prior study. No acute abnormality is seen. She had a little more pain so I ordered dilaudid again. I updated Dr Juan and she will put in an consult to surgery. Departure - Departure Time of Disposition: 16:30 Disposition: Home, Self-Care 01 Condition: Good Clinical Impression: Hiatal hernia Abdominal pain Qualifiers: Abdominal location: right lower quadrant Qualified Code(s): R10.31 - Right lower quadrant pain - Discharge Information *PRESCRIPTION DRUG MONITORING PROGRAM REVIEWED*: Not Applicable *COPY OF PRESCRIPTION DRUG MONITORING REPORT IN PATIENT JOSE RAMON: Not Applicable Prescriptions: Hydrocodone/Acetaminophen [Hydrocodone-Acetamin 5-325 mg] 1 - 2 each PO Q6H PRN #15 tablet PRN Reason: Pain Referrals: Lisbeth Juan MD [Primary Care Provider] - 1 Week Forms: ED Department Discharge Additional Instructions: Drink plenty of fluids. Take tylenol or motrin for pain. If that does not help, try the hydrocodone. Follow up with Dr Juan. She is putting in a referral to surgery. Please return if you are worse. Sepsis Event Note (ED) - Evaluation Sepsis Screening Result: No Definite Risk - Focused Exam Vital Signs: Vital Signs Temp Pulse Resp BP Pulse Ox 11/26/20 13:08 96.4 F L 65 16 155/64 H 97 - My Orders Last 24 Hours: My Active Orders 11/26/20 13:22 Peripheral IV Care [RC] . DIRECTED Sodium Chloride 0.9% [Saline Flush] 10 ml FLUSH ASDIRECTED PRN ED Antiemetic Medication Reflex [OM.PC] Stat Peripheral IV Insertion Adult [OM.PC] Stat 11/26/20 13:30 Sodium Chloride 0.9% [Saline Flush] 10 ml FLUSH ASDIRECTED - Assessment/Plan Last 24 Hours: My Active Orders 11/26/20 13:22 Peripheral IV Care [RC] . DIRECTED Sodium Chloride 0.9% [Saline Flush] 10 ml FLUSH ASDIRECTED PRN ED Antiemetic Medication Reflex [OM.PC] Stat Peripheral IV Insertion Adult [OM.PC] Stat 11/26/20 13:30 Sodium Chloride 0.9% [Saline Flush] 10 ml FLUSH ASDIRECTED
--- NOTE | 2020-11-26 15:20 | CT ---
CT abdomen and pelvis Technique: Multiple axial sections were obtained from above the dome of the diaphragm inferiorly through the pubic symphysis. Intravenous and oral contrast was utilized. Delayed images were also obtained through the bladder. Reconstructed coronal and sagittal images were obtained. Comparison: Prior renal stone protocol CT dated 11/17/20. Findings: Moderately large hiatal hernia is seen. Gastroesophageal reflux is noted into the esophagus. Visualized lung bases show nothing acute. Liver shows no focal parenchymal abnormality. Surgical clips are noted from prior cholecystectomy. Spleen size is normal. Adrenal glands show no nodule. Pancreas shows no abnormality. Kidneys show symmetric contrast enhancement. Small cyst is noted within the left kidney. No hydronephrosis is seen. Previous study showed small calculi within the kidneys which are not visualized on this contrast exam. Abdominal aorta shows no aneurysm. No retroperitoneal adenopathy is seen. No mesenteric abnormalities are seen. Appendix is seen which is normal. Scattered diverticuli are seen within the sigmoid colon as well as throughout other portions of the colon. No definite inflammatory change or free fluid is seen. Delayed images show contrast within the distal ureters and bladder. Bone window settings were reviewed which show mild scattered degenerative change within the spine. No acute osseous abnormality is appreciated. Impression: 1. Moderately large hiatal hernia with gastroesophageal reflux into the esophagus. 2. Other findings as noted above which are stable from prior study. No acute abnormality is seen. Diagnostic code #3
== END 2020-11-26 17:00 | disposition home or self-care (01) ==
LOC: JD.ED 12:51
DX: K44.9 Diaphragmatic hernia without obstruction or gangrene (principal); E78.00 Pure hypercholesterolemia, unspecified; I10 Essential (primary) hypertension; E03.9 Hypothyroidism, unspecified; E66.9 Obesity, unspecified; Z79.899 Other long term (current) drug therapy; Z68.32 Body mass index [BMI] 32.0-32.9, adult; Z88.8 Allergy status to other drugs, medicaments and biological substances
CPT/HCPCS: 36415; 74177; 80053; 81001; 83690; 85025; 96374; 96375; 96376; 99284; J1170; J2405; J7030; Q9963; Q9967